=== PATIENT | male | born 1960 | race Caucasian/White ===

== ENCOUNTER 2017-09-12 16:06 | Inpatient (IN) | payer SELFPAY ==
[~2017-09-12] VITALS: Ht 177.8 cm; Wt 104.5 kg
[2017-09-12] MEDS ORDERED: ASPIRIN 81 MG CHEW TAB PO STA (16:18)
[2017-09-12] MEDS ORDERED: HEPARIN SODIUM - IV 10,000 UNITS/10 ML VIAL IV PUSH STA (16:18)
[2017-09-12] MEDS ORDERED: HEPARIN-NS/PF INJ 1,000 ML ONE (16:23)
[2017-09-12] MEDS ORDERED: STERILE WATER FOR INJECTION 10 ML VIAL ONE (16:28)
[2017-09-12] MEDS ORDERED: BIVALIRUDIN 250 MG VIAL ONE ×2 (16:28→17:25)
[2017-09-12] MEDS ORDERED: NITROGLYCERIN-D5W 50 MG/250 ML 250 ML IV PRN ×2 (16:30)
--- NOTE | 2017-09-12 16:42 | PD ---
HPI Chief Complaint: STEMI Alert Time Seen by Provider: 16:10 Travel History International Travel<30 days: No Contact w/Intl Traveler<30days: No Traveled to known affect area: No History of Present Illness HPI This patient is brought in as a STEMI alert. He started having central chest pain and pressure 30 minutes prior to arrival. Was not exertionally induced. He denies history of heart attack or heart blockage. He has hypertension and is not treating it. He is a smoker. Symptoms are moderately severe. No alleviating factors. No exacerbating factors. PFSH Past Medical History Medical History: Denies Significant Hx Past Surgical History Surgical History: No Previous Surgery Social History Alcohol Use: No Tobacco Use: No Substance Use: No Allergies-Medications (Allergen,Severity, Reaction): Coded Allergies: No Known Allergies (Unverified , 09/12/17) Review of Systems General / Constitutional: No: Fever Eyes: No: Visual changes HENT: No: Headaches Cardiovascular: Positive: Chest Pain or Discomfort Respiratory: No: Shortness of Breath Gastrointestinal: No: Abdominal Pain Genitourinary: No: Dysuria Musculoskeletal: No: Pain Skin: No Rash Neurologic: No: Weakness Psychiatric: No: Depression Endocrine: No: Polydipsia Hematologic/Lymphatic: No: Easy Bruising Physical Exam Narrative GENERAL: Well-nourished, well-developed patient with chest pain SKIN: Focused skin assessment reveals no rash and nodules. Skin is Warm and dry. HEAD: Atraumatic. Normocephalic. EYES: Pupils equal and round. No scleral icterus. No injection or drainage. ENT: No nasal bleeding or discharge. Mucous membranes pink and moist. NECK: Trachea midline. No JVD. CARDIOVASCULAR: Regular rate and rhythm. No murmur appreciated. RESPIRATORY: No accessory muscle use. Clear to auscultation. Breath sounds equal bilaterally. GASTROINTESTINAL: Abdomen soft, non-tender, nondistended. Hepatic and splenic margins not palpable. MUSCULOSKELETAL: No obvious deformities. No clubbing. No cyanosis. No edema. NEUROLOGICAL: Awake and alert. No obvious cranial nerve deficits. Motor grossly within normal limits. Normal speech. PSYCHIATRIC: Appropriate mood and affect; insight and judgment normal. Data Data Last Documented VS Vital Signs Date Time Temp Pulse Resp B/P (MAP) Pulse Ox O2 Delivery O2 Flow Rate FiO2 09/12/17 16:20 96 Nasal Cannula 2.00 09/12/17 16:18 80 98 Orders Orders Cardiac Catheterization (09/12/17 ) Troponin I (09/12/17 16:10) Ckmb (Isoenzyme) Profile (09/12/17 16:10) Complete Blood Count With Diff (09/12/17 16:10) I-Stat Profile (09/12/17 16:10) I-Stat Creatinine (09/12/17 16:10) Calcium (09/12/17 16:10) Magnesium (Mg) (09/12/17 16:10) Prothrombin Time / Inr (Pt) (09/12/17 16:10) Act Partial Throm Time (Ptt) (09/12/17 16:10) B-Type Natriuretic Peptide (09/12/17 16:10) Chest, Single Ap (09/12/17 16:10) Electrocardiogram (09/12/17 16:10) Oxygen Administration (09/12/17 16:10) Iv Access Insert/Monitor (09/12/17 16:10) Oximetry (09/12/17 16:10) Nitroglycerin-D5w 50 Mg/250 Ml (Nitrogly (09/12/17 16:30) Heparin Inj (Heparin Inj) (09/12/17 16:18) Aspirin Chew (Aspirin Chew) (09/12/17 16:18) Heparin-Ns/Pf Inj (Heparin-Ns/Pf Inj) (09/12/17 16:23) Nitroglycerin-D5w 50 Mg/250 Ml (Nitrogly (09/12/17 16:30) Bivalirudin Inj (Angiomax Inj) (09/12/17 16:28) Water Sterile For Injection (Sterile Dimas (09/12/17 16:28) Labs Laboratory Tests Test 09/12/17 16:10 MDM Medical Decision Making Medical Screen Exam Complete: Yes Emergency Medical Condition: Yes Medical Record Reviewed: Yes Differential Diagnosis Acute RI, ACS, pleurisy Narrative Course I have reviewed the patient's electronic medical record. This patient arrives critically ill as an acute inferior STEMI Both EKGs here and paramedics EKG confirmed large tombstones in inferior leads with reciprocal depressions in lateral leads 2 IVs placed I have ordered the STEMI alert protocol I gave him 2 baby aspirin to equal 4 total as 2 were given by paramedics I gave him a heparin bolus per protocol I started him on nitroglycerin drip I reviewed his i-STAT switch look normal Hemoglobin is normal Creatinine is 1.2 I discussed the case in detail with toll line repairer on-call Dr. Pastrana He agrees with above treatments and requests prompt transfer to the catheter lab for emergent catheterization All of the above reviewed with patient Initial blood pressure 140 systolic Critical Care Narrative Aggregate critical care time was 34 minutes. Time to perform other separately billable procedures was not included in the critical care time. My time did not include minutes spent treating any other patients simultaneously or on activities that did not directly contribute to the patient's treatment. The services I provided to this patient were to treat and/or prevent clinically significant deterioration that could result in: Cardiopulmonary arrest, myocardial damage, cardiac arrhythmia I provided critical care services requiring my management, as noted below: Chart data review, documentation time, medication orders and management, vital sign assessments/reviewing monitor data, ordering and reviewing lab tests, ordering and interpreting/reviewing x-rays and diagnostic studies, care of the patient and discussion of the patient with the admitting physicians. Diagnosis Primary Impression: Acute ST elevation myocardial infarction (STEMI) of inferior wall Admitting Information Admitting Physician Requests: it Oskar Zaldivar MD Sep 12, 2017 16:42
[2017-09-12 16:43] LABS: AUTOMATED NEUTROPHIL # 13.4 TH/MM3 (1.8-7.7); BASOPHIL # 0.1 TH/MM3 (0-0.2); BASOPHIL % 0.3 % (0.0-2.0); EOSINOPHIL # 0.1 TH/MM3 (0-0.4); EOSINOPHIL % 0.7 % (0.0-4.0); HEMATOCRIT 46.9 % (39.0-51.0); HEMOGLOBIN 15.7 GM/DL (13.0-17.0); LYMPH % 14.8 % (9.0-44.0); LYMPHOCYTE # 2.5 TH/MM3 (1.0-4.8); MEAN CELL VOLUME 83.4 FL (80.0-100.0); MEAN CORPUSCULAR HEMOGLOBIN 27.8 PG (27.0-34.0); MEAN CORPUSCULAR HGB CONC 33.4 % (32.0-36.0); MEAN PLATELET VOLUME 8.1 FL (7.0-11.0); MONO % 3.8 % (0.0-8.0); MONOCYTE # 0.6 TH/MM3 (0-0.9); NEUT % 80.4 % (16.0-70.0); PLATELET COUNT 253 TH/MM3 (150-450); RED BLOOD COUNT 5.62 MIL/MM3 (4.50-5.90); RED CELL DISTRIBUTION WIDTH 15.7 % (11.6-17.2); WHITE BLOOD COUNT 16.7 TH/MM3 (4.0-11.0)
[2017-09-12] MEDS ORDERED: MIDAZOLAM HCL 2 MG/2 ML VIAL ONE (16:43)
--- NOTE | 2017-09-12 16:45 | RADRPT ---
EXAM DATE/TIME: 09/12/2017 16:21 [facility] COMPARISON: CHEST SINGLE AP, September 12, 2017, 16:13. INDICATIONS : Chest pain. Stemi alert. MEDICAL HISTORY : None. SURGICAL HISTORY : None. ENCOUNTER: Initial ACUITY: 1 day PAIN SCORE: 7/10 LOCATION: Bilateral chest FINDINGS: Single AP view of the chest. The lungs are clear. Mild cardiac silhouette enlargement. No evidence of pleural effusion or pneumothorax. CONCLUSION: Mild cardiac silhouette enlargement. No other acute cardiopulmonary disease identi fied. Milan Sun MD on September 12, 2017 at 16:42 Board Certified Radiologist. This report was verified electronically.
[2017-09-12] MEDS ORDERED: PHENYLEPHRINE HCL 10 MG/ML VIAL ONE (16:49)
--- NOTE | 2017-09-12 16:51 | RADRPT ---
EXAM DATE/TIME: 09/12/2017 16:13 [facility] COMPARISON: No previous studies available for comparison. INDICATIONS : Chest pain- stemi alert. MEDICAL HISTORY : None. SURGICAL HISTORY : None. ENCOUNTER: Initial ACUITY: 1 day PAIN SCORE: 10/10 LOCATION: Bilateral chest FINDINGS: Single AP view of the chest. The lungs are clear. Mild cardiac silhouette enlargement. No evidence of pleural effusion or pneumothorax. CONCLUSION: Mild cardiac silhouette enlargement. No other acute cardiopulmonary disease ident ified. Milan Sun MD on September 12, 2017 at 16:48 Board Certified Radiologist. This report was verified electronically.
[2017-09-12 16:55] LABS: PROTHROMBIN TIME - PATIENT 10.4 SEC (9.8-11.6)
[2017-09-12 17:04] LABS: CALCIUM 9.1 MG/DL (8.5-10.1); MAGNESIUM 2.1 MG/DL (1.5-2.5)
[2017-09-12 17:06] LABS: TROPONIN I 0.27 NG/ML (0.02-0.05)
[2017-09-12] MEDS ORDERED: TICAGRELOR 90 MG TAB PO ONE ×2 (17:16→17:30)
[2017-09-12] MEDS ORDERED: MISC INFORMATION XX ONE (17:30)
[2017-09-12] MEDS: SODIUM CHLOR 0.9% 1000 ML INJ 1,000 ML IV SCH (17:30)
[2017-09-12] MEDS ORDERED: ATROPINE SULFATE 1 MG/ML VIAL IV PUSH PRN (17:30)
[2017-09-12] MEDS ORDERED: PILL SPLITTER OTHER PRN (17:45)
--- NOTE | 2017-09-12 18:02 | CATHPROC ---
T-Quad 22 HIS Report Study Information Study Number Admission Scheduled Start Study Start [id number] Sep 12 2017 4:06PM 09/12/2017 Sep 12 2017 4:22PM [facility] Service Cardiac Catheterization Admit Source Facility Department Emergency department [facility] - Java Xml Developer Physician and Clinical Staff Initial MD Noble, Mike Acid Changer Celio RN, Jasmyne Gtz,RT(R) (BS) Scrub Anay Damon,RT(R) Procedures Performed Procedure Location (Site) Vessel Name Angiogram LV LV Ventricle Coronary Angiograms LCA Left Coronary L Heart Cath PTCA RCA Dist Right Coronary Stent RCA Dist Right Coronary Wire insertion Fem Art (right) Femoral Art Equipment Time Bass Singer Description Size Mfg Part Number Used/Scraped COPILOT VALVE, BLEEDBACK [id number] 16:44 [employer] Used CONTROL *[id number] PERCLOSE, PRO GLIDE CLOSER 17:15 [employer] FR 6 [id number] *[id number] Used DEVICE TRANSDUCER, TRUWAVE [id number] 16:25 OLNG WERNER * Used W/STOCKCOCK *[id number] WIRE, CHOICE PT EX. SUPPORT [id number] 16:55 [employer] 180CM Used 182CM *[id number] INTRODUCER SET, 16:25 [employer] FR 5 [id number] *[id number] Used MICROPUNCTURE, STIFFENED [id number] *[id number] *[id number] PIGTAIL ANG. 145 INFINITI 534-652S CATHETER *[id number] 16:25 [employer] INDUSTRIES PACK, CCL CUSTOM * Used *[id number] 16:59 MED[employer] BALLOON, 2.5 X 12MM EUPHORA 12MM Used *[id number] 17:06 [employer]IC STENT, 2.75 18 INTEGRITY 2.75 18 Used *5409537 [id number] 17:01 [employer]vant [employer] MEDICAL 30 CHEMO INDEFLATOR Used *[id number] [id number] 16:25 [employer]zlong WIRE, 3MMJ .035 180CM 180CM Used *[id number] [id number] 16:25 NAMIC MANIFOLD, 4 PORT * Used *[id number] [id number] 17:10 NAMIC TUBING, HIGH PRESSURE 20" 20" Used *[id number] 16:25 [employer]COMED OMNIPAQUE, 350 MG, 150ML 150ML [id number] Used 17:15 [employer]ED OMNIPAQUE, 350 MG, 50ML 50ML [id number] Used [id number] 16:25 [employer]ANN MEDICAL BLANKET,WARM AIR CCL * Used *1992102 [id number] 16:29 TERUMO MEDICAL SHEATH, FR6 TERUMO (10CM) FR 6 Used *[id number] WIRE, RUNTHROUGH NS FLOPPY 16:44 [employer]UMO MEDICAL 180CM Used .014 180CM *[id number] PIG ANG 145 DXTERITY Scrap: device 17:10 MEDTRONIC FR 5 [id number] CATHETER failure Equipment Model, Serial, Lot Number and Expiration Data Description Model Number Serial Number Lot Number Expiration Date STENT, 2.75 18 INTEGRITY [id number] 11-13-2018 WIRE, CHOICE PT EX. SUPPORT [id number] 02-12-2019 182CM History: Current Medications Medication Dosage/Unit Route Frequency Last Date/Time Taken ASA HEPARIN History: Allergies Allergy Reaction No Known Allergies History: Risk Factors Family History of Hypertension Dyslipidemia Previous MS Previous Heart Failure Premature CAD No No No No No Prior Valve Prior PCI Prior CABG Surgery No No No Cerebrovascular Peripheral Artery Chronic Lung On Dialysis Diabetes Disease Disease Disease No No No No No History: Symptoms/Diagnosis Selection Items Chest pain History: Stress Tests Stress or Imaging Studies Performed No History: Other Current Smoker No Labs Hgb (g/dl) Hct (%) WBC (l/cumm) Platelets (thousands) 11.60-17.00 35.00-51.00 4.00-11.00 150.00-450.00 15.7 46.9 16.7 253 Glucose (mg/dl) BUN (mg/dl) Creatinine (mg/dl) BUN:Creatinine (1:x) 74.00-106.00 7.00-18.00 0.50-1.30 10.00-20.00 186 16 1.2 13.3 Na (meq/l) K (meq/l) Cl (meq/l) 136.00-145.00 3.50-5.10 98.00-107.00 141 3.9 103 Medication Medication Total Dose (Bolus/Oral) Medication Total Dosage/Unit 1% XYLOCAINE 20 mL ANGIOMAX BOLUS 16 mL BRILINTA 180 mg FENTANYL 50 mcg VERSED 1 mg Medications (Bolus/Oral) Medication Time Given Dosage/Unit Administered By Reason FENTANYL 09/12/2017 4:46:12 PM 50 mcg Tj Pickens RN 50 mcg FENTANYL given in lab by Tj Pickens RN in Left Antecubital via Peripheral IV. Ordered by Mike Steiner. 1% XYLOCAINE 09/12/2017 4:46:47 PM 20 mL Mike Noble 20 mL 1% XYLOCAINE given in lab by Mike Noble in Right Groin via Subcutaneous. VERSED 09/12/2017 4:47:00 PM 1 mg Tj Pickens RN 1 mg VERSED given in lab by Tj Pickens RN in Left Antecubital via Peripheral IV. Ordered by Mike Mcwilliams. ANGIOMAX BOLUS 09/12/2017 4:50:12 PM 16 mL Tj Pickens RN 16 mL ANGIOMAX BOLUS given in lab by Tj Pickens RN in Left Antecubital via Peripheral IV. Ordered b y Mike Noble. BRILINTA 09/12/2017 5:20:02 PM 180 mg Tj Pickens RN 180 mg BRILINTA given in lab by Tj Pickens RN via Oral. Ordered by Mike Noble. Medication (Drip) Medication Time Given Dosage/Unit Concentration/Unit Diluent (ml) Solutio n ANGIOMAX DRIP 09/12/2017 4:53:28 PM 1.748 mg/kg/hr 250 mg 50 NaCl .9 1.748 mg/kg/hr ANGIOMAX DRIP given in lab by Tj Pickens RN in Left Antecubital via Peripheral IV. P ump/Drip Flow = 37.4 ml/hr using NaCl .9 with a concentration of 250 mg in 50 ml. Ordered by Mike Noble. IV Solutions 09/12/2017 4:34:53 PM 50 mL (IV) NaCl .9 IV Solutions given in lab by Tj Pickens RN in Left Antecubital via Peripheral IV. Pump/Drip Flow us ing NaCl .9. NITROGLYCERIN DRIP 09/12/2017 4:42:28 PM 5 mcg/min 50 mg 250 D5W Patient arrived on 5 mcg/min NITROGLYCERIN DRIP in Left Hand via Peripheral IV. Pump/Drip Flow = 1.5 ml/hr using D5W with a concentration of 50 mg in 250 ml. Initial Case Assessment Cardiovascular HR Rhythm NIBP Chest Pain 89 STEMI 141/101 7 Edema Present Skin color Skin None Normal Warm Dry Circulatory - Right Pulses Dorsalis Pedis Femoral 2 2 Scale (0,1,2,3,4,d) Circulatory - Left Pulses Dorsalis Pedis Femoral 2 2 Scale (0,1,2,3,4,d) Neurological State Oriented to time-place- Alert Moves all extremities person Respiration - General Respiration Rate SpO2 (%) (B/min) 10 99 Final Case Assessment Cardiovascular HR NIBP Chest Pain 81 132/89 0 Edema Present Skin color Skin None Normal Warm Dry Circulatory - Right Pulses Dorsalis Pedis Femoral 2 2 Scale (0,1,2,3,4,d) Circulatory - Left Pulses Dorsalis Pedis Femoral 2 2 Scale (0,1,2,3,4,d) Neurological State Oriented to time-place- Alert Moves all extremities person Respiration - General Respiration Rate SpO2 (%) (B/min) 9 99 Chronological Log Time Study Chronological Log 16:34:33 Patient arrived via Bed. 16:34:33 Patient Name, D.O.B, / Armband Verified By R.N. 16:34:34 Consent signed by the physician and the patient and verified by the Java Xml Developer staff. 16:34:38 Pre-op and post- op instructions given; patient acknowledges understanding of instructions. 16:34:40 Verbal Stimulation=2 Physical Stimulation=2 Airway=2 Respiration=2 TOTAL=8. (0=absent, 1=li mited, 2=present) 16:34:46 Patient Warmer Placed on the Table. 16:34:48 Disposable Defibrillator Pads Placed On Patient. 16:34:49 Anthony Prominences Protected 16:34:52 A # 20 IV was noted in the Hand (left). Grade = 0 16:34:53 IV Solutions given in lab by Tj Pickens RN in Left Antecubital via Peripheral IV. Pump/Dr ip Flow using NaCl .9. 16:34:54 History and physical on the chart or being dictated. Assessment: Initial Case, HR=89 BPM, Rhythm=STEMI, DDKX=704/101 mmhg, Chest Pain=7, Edema=None, Color=Normal, Skin = Warm, Dry Right Pulses: Zeb Ped=2, Femoral=2 16:34:54 Left Pulses: Zeb Ped=2, Femoral=2 Neurological: State=Alert, Ox3, ROME Respiration: Resp=10 B/min, SpO2=99 % Vitals capture started with the following parameters, Patient=Adult, Interval=5 min, Initial Pr pbjhng=016 mmHg, 16:39:05 Deflation Rate=5 mmHg, Cuff placed on Left Arm 16:39:44 HR=89 bpm, LDOD=902/101 mmhg, SpO2=99.0 %, Resp=10 B/min, Pain=7, Ahsan=10, Manuel=2 16:40:28 A # 20 IV was noted in the Antecubital (left). Grade = 0 16:40:47 Bilateral groins prepped with 2% chlorhexidine, and draped after a 3 minute waiting time. 16:40:52 Reference ECG taken Patient arrived on 5 mcg/min NITROGLYCERIN DRIP in Left Hand via Peripheral IV. Pump/Drip Flow = 1.5 ml/hr using 16:42:28 D5W with a concentration of 50 mg in 250 ml. Vitals capture started with the following parameters, Patient=Adult, Interval=5 min, Initial Pr keddsi=889 mmHg, 16:43:27 Deflation Rate=5 mmHg, Cuff placed on Left Arm 16:44:06 HR=80 bpm, YVZJ=619/102 mmhg, PrQ8=538.0 %, Resp=10 B/min, Pain=7, Ahsan=10, Manuel=2 16:44:23 Contrast Scanned 16:44:23 Immediate Presedation assesment performed by physician. Time Out. Correct patient, correct procedure, correct physician, power injector not loaded with contrast with surgical 16:44:24 team present. Time Out Concurred by MD and individual staff in procedure. 16:44:38 Case Start 16:44:45 Verbal Stimulation=2 Physical Stimulation=2 Airway=2 Respiration=2 TOTAL=8. (0=absent, 1=li mited, 2=present) 16:45:01 Pressure channel 1 zeroed. 16:46:12 50 mcg FENTANYL given in lab by Tj Pickens RN in Left Antecubital via Peripheral IV. Orde red by Mike Noble. 16:46:47 20 mL 1% XYLOCAINE given in lab by Mike Noble in Right Groin via Subcutaneous. 16:47:00 1 mg VERSED given in lab by Tj Pickens RN in Left Antecubital via Peripheral IV. Ordered by Mike Noble. 16:47:30 Access site was Right Femoral Artery. A INTRODUCER SET, MICROPUNCTURE, STIFFENED FR 5 was advanced into the Fem Art (right) using the 16:47:35 Percutaneous technique. A SHEATH, FR6 TERUMO (10CM) FR 6 was exchanged in the Fem Art (right). This was necessary in or kyung to 16:47:43 accomodate a larger catheter. A JL 4.0 INFINITI CATHETER FR 6 was advanced over a wire. OMNIPAQUE, 350 MG, 150ML 150ML was us ed for 16:48:37 injections. 16:49:09 HR=79 bpm, OYAF=440/102 mmhg, YuA6=412.0 %, Resp=9 B/min, Pain=7, Ahsan=10, Manuel=2 Recorded Pressure: Ao, HR=82, Condition=Condition 1 16:49:37 (Aorta) Ao 135/90/112 16 mL ANGIOMAX BOLUS given in lab by Tj Pickens RN in Left Antecubital via Peripheral IV. Ord ered by Real, 16:50:12 Mike. 16:51:04 The LCA was injected and visualized at various angles. OMNIPAQUE, 350 MG, 150ML 150ML used . Recorded Pressure: LV, HR=94, Condition=Condition 1 16:51:41 (Left Ventricle) LV 148/15/29 Recorded Pressure: LV, Ao, HR=84, Condition=Condition 1 16:51:50 (Left Ventricle) LV 132/16/26, (Aorta) Ao 145/92/119 1.748 mg/kg/hr ANGIOMAX DRIP given in lab by Tj Pickens RN in Left Antecubital via Peripheral IV. Pump/Drip Flow = 16:53:28 37.4 ml/hr using NaCl .9 with a concentration of 250 mg in 50 ml. Ordered by Mike Noble. 16:53:37 A WIRE, RUNTHROUGH NS FLOPPY .014 180CM 180CM was inserted via Fem Art (right). 16:54:41 HR=99 bpm, ERRH=430/103 mmhg, MoN6=922.0 %, Resp=8 B/min, Pain=7, Ahsan=10, Manuel=2 16:56:07 Wire removed 16:56:08 A WIRE, CHOICE PT EX. SUPPORT 182CM 180CM was inserted via Fem Art (right). A BALLOON, 2.5 X 12MM EUPHORA 12MM was inserted over WIRE, CHOICE PT EX. SUPPORT 182CM 180CM vi a the 16:58:40 Fem Art (right). 16:59:09 HR=96 bpm, MVOK=970/97 mmhg, VzW3=396.0 %, Resp=8 B/min A BALLOON, 2.5 X 12MM EUPHORA 12MM over a WIRE, CHOICE PT EX. SUPPORT 182CM 180CM in the RCA Di st was 17:00:25 inflated using a 30 CHEMO INDEFLATOR at 10 chemo for 10 sec. A BALLOON, 2.5 X 12MM EUPHORA 12MM over a WIRE, CHOICE PT EX. SUPPORT 182CM 180CM in the RCA Di st was 17:01:16 inflated using a 30 CHEMO INDEFLATOR at 10 chemo for 12 sec. 17:01:26 Balloon Removed. 17:04:08 HR=88 bpm, ATVT=690/82 mmhg, AyY3=419.0 %, Resp=11 B/min An STENT, 2.75 18 INTEGRITY 2.75 18 Bare Metal Stent was inserted through a JR 4.0 GUIDE CATHET ER FR 6 over a 17:06:03 WIRE, CHOICE PT EX. SUPPORT 182CM 180CM. A STENT, 2.75 18 INTEGRITY 2.75 18 was deployed using a 30 CHEMO INDEFLATOR at 12 atmospheres for 13 seconds in 17:06:15 the RCA Dist. 17:07:21 Delivery device removed 17:08:53 Wire removed 17:08:55 Catheter was removed 17:09:05 HR=85 bpm, XRJX=300/82 mmhg, TmI1=085.0 %, Resp=13 B/min A PIGTAIL ANG. 145 INFINITI CATHETER FR 6 was advanced over a wire. OMNIPAQUE, 350 MG, 150ML 15 0ML was 17:11:10 used for injections. Recorded Pressure: LV, HR=85, Condition=Condition 1 17:12:18 (Left Ventricle) LV 111/13/25 17:14:00 The LV was injected at 10 cc/sec for a total of 30. OMNIPAQUE, 350 MG, 50ML 50ML used. 17:14:10 HR=84 bpm, CJXM=214/66 mmhg, SpO2=99.0 %, Resp=9 B/min Recorded Pressure: LV, Ao, HR=82, Condition=Condition 1 17:14:28 (Left Ventricle) LV 116/12/23, (Aorta) Ao 116/79/97 17:15:03 Catheter was removed 17:15:45 An injection in the Fem Art (right) was made through the SHEATH, FR6 TERUMO (10CM) FR 6. 17:16:36 PERCLOSE, PRO GLIDE CLOSER DEVICE FR 6 placement in the Fem Art (right) 17:18:11 Case End 17:19:07 HR=80 bpm, RTZZ=135/83 mmhg, SpO2=98.0 %, Resp=7 B/min 17:20:02 180 mg BRILINTA given in lab by Tj Pickens RN via Oral. Ordered by Mike Noble. 17:24:08 HR=89 bpm, QXDF=590/89 mmhg, SpO2=99.0 %, Resp=9 B/min 17:25:07 Sterile dressing applied to site 17:25:08 No case complications noted. 17:25:14 Cine recording checked. 17:25:15 Bedside Report will be given. 17:25:16 Implantable Device card placed in patient's chart. 17:25:19 Contrast Scanned 17:25:26 A Left Heart Cath was performed. Assessment: Final Case, HR=81 BPM, BCUS=288/89 mmhg, Chest Pain=0, Edema=None, Color=Normal, Sk in = Warm, Dry Right Pulses: Zeb Ped=2, Femoral=2 17:27:31 Left Pulses: Zeb Ped=2, Femoral=2 Neurological: State=Alert, Ox3, ROME Respiration: Resp=9 B/min, SpO2=99 % 17:29:10 HR=86 bpm, RHZE=600/81 mmhg, GuJ9=843.0 %, Resp=10 B/min 17:34:11 HR=86 bpm, VRGE=579/110 mmhg, GbK0=149.0 %, Resp=14 B/min 17:39:12 DE=131 bpm, IWXH=412/94 mmhg, SpO2=99.0 %, Resp=15 B/min, Pain=7, Ahsan=10, Manuel=2 17:44:11 HR=88 bpm, YSYQ=306/89 mmhg, SpO2=95.0 %, Resp=13 B/min, Pain=7, Ahsan=10, Manuel=2 17:49:10 HR=87 bpm, WBTX=861/91 mmhg, SpO2=97.0 %, Resp=14 B/min, Pain=7, Ahsan=10, Manuel=2 17:54:13 HR=91 bpm, XMYI=619/85 mmhg, SpO2=96.0 %, Resp=12 B/min, Pain=7, Ahsan=10, Manuel=2 17:59:41 HR=93 bpm, RTIM=310/94 mmhg, SpO2=95.0 %, Resp=15 B/min, Pain=7, Ahsan=10, Manuel=2 End Study - Contrast Media Used In Study Contrast Total Opened (mL) Total Used (mL) Total Wasted (mL) Omnipaque 90 90 0 End Study - Maximum Contrast Load Max Contrast Load (mL) 445.8 End Study - Radiation Exposure Fluoro Time (minutes) 8.5 End Study - Patient Disposition Complications Transferred To Interventional Outcome No Critical Care Bed successful
[2017-09-12 19:00] VITALS: PULSE 92
[2017-09-12] MEDS ORDERED: BIVALIRUDIN INJ 250 MG in SODIUM CHLORIDE 0.9% INJ 50 ML IV SCH (19:30)
[2017-09-12] MEDS: METOPROLOL TARTRATE 25 MG TAB PO SCH (20:49)
[2017-09-12] MEDS: ATORVASTATIN 10 MG TAB PO SCH (20:49)
--- NOTE | 2017-09-12 21:11 | MB ---
cc: ALEX RAYGOZA DATE OF CONSULTATION 09/12/17 [address]-segment elevation MO. HISTORY OF PRESENT ILLNESS 57-year-old male with no past medical history who presented to the emergency department with acute onset of chest pain. The emergency department EKG revealed ST-segment elevation on inferior leads with reciprocal changes in the anterior leads for which a stimulator was activated. The patient complains of left-sided chest pain with radiation to the arm. No associated shortness of breath or PND, palpitations or syncope. REVIEW OF SYSTEMS Negative except for what is mentioned in the HPI. PAST MEDICAL HISTORY None PAST SURGICAL HISTORY None FAMILY HISTORY No premature heart disease. SOCIAL HISTORY No illicit drug use. No alcohol abuse. Apparently a smoker. PHYSICAL EXAMINATION VITAL SIGNS: Temperature 97, heart rate 100, blood pressure 140/80, O2 sat 100 % on 2 liters nasal cannula. GENERAL: He is awake, alert, oriented times three complaining of chest pain. NECK: No JVD, no carotid bruits. HEART: Regular rate and rhythm. Tachycardic. No murmurs, rubs or gallops. LUNGS: Poor inspiratory effort, no wheezes, no rhonchi. ABDOMEN: Obese. Positive bowel sounds, soft, nontender, nondistended. EXTREMITIES: No cyanosis or edema. Pulses throughout. LABORATORY DATA Sodium 141, potassium 3.9, chloride 103, BUN 16. Hemoglobin 16, hematocrit 40. CARDIOLOGY STUDIES EKG sinus rhythm with significant ST elevation in inferior leads suggestive of acute myocardial injury. ASSESSMENT/PLAN 57-year-old male who presented with STEMI alert. He is complaining of chest pain. Recommendation would be to take him emergently to the cardiac track repair laborer for primary PCI per ACC/AHA guidelines, risks, benefits and alternatives of left heart cath plus/minus PCI included but not limited to neurovascular trauma , infection, bleeding, acute kidney injury, stroke, emergent bypass surgery and have been explained to the patient. The patient understands the risks and is willing to proceed. Plan to keep n.p.o. for emergent primary PCI. Alex Raygoza MD INSURANCE FOLLOW UP REPRESENTATIVE/SA /4:37 PM /8:31 PM [facility]
[2017-09-12 23:00] VITALS: PULSE 83
[2017-09-13] VITALS (18 sets, daily range): BP systolic 118–135; BP diastolic 79–83; PULSE 66–83; RESP 16–21; TEMP 97.7–98.3; O2SAT 96–97
[2017-09-13 04:10] LABS: AUTOMATED NEUTROPHIL # 12.8 TH/MM3 (1.8-7.7); BASOPHIL # 0.1 TH/MM3 (0-0.2); BASOPHIL % 0.6 % (0.0-2.0); EOSINOPHIL % 0.2 % (0.0-4.0); HEMATOCRIT 40.4 % (39.0-51.0); HEMOGLOBIN 13.4 GM/DL (13.0-17.0); LYMPH % 9.8 % (9.0-44.0); LYMPHOCYTE # 1.5 TH/MM3 (1.0-4.8); MEAN CELL VOLUME 82.1 FL (80.0-100.0); MEAN CORPUSCULAR HEMOGLOBIN 27.2 PG (27.0-34.0); MEAN CORPUSCULAR HGB CONC 33.1 % (32.0-36.0); MEAN PLATELET VOLUME 8.1 FL (7.0-11.0); MONO % 4.1 % (0.0-8.0); MONOCYTE # 0.6 TH/MM3 (0-0.9); NEUT % 85.3 % (16.0-70.0); PLATELET COUNT 194 TH/MM3 (150-450); RED BLOOD COUNT 4.92 MIL/MM3 (4.50-5.90); RED CELL DISTRIBUTION WIDTH 15.3 % (11.6-17.2)
[2017-09-13 04:38] LABS: BICARBONATE 25.5 MEQ/L (21.0-32.0); CALCIUM 8.2 MG/DL (8.5-10.1); CREATININE 0.96 MG/DL (0.60-1.30)
[2017-09-13] MEDS: SODIUM CHLOR 0.9% 1000 ML INJ 1,000 ML IV SCH (04:56)
--- NOTE | 2017-09-13 06:31 | MA ---
cc: JEREMIASALEX Tan DATE September 12, 2017 DATE OF 1960 PROCEDURE PERFORMED 1. Left heart catheterization. 2. Selective right and left coronary angiography. 3. Left ventriculogram. 4. Successful PCI to the distal right coronary artery. INDICATION Inferior ST-segment elevation MN. APPROACH Right transfemoral. PROCEDURE DESCRIPTION Consent was signed. The patient was admitted emergent to the cardiac slab inspector. The right groin was prepped and draped in sterile fashion. Using 1% lidocaine for local anesthesia and a micropuncture kit, a 6-Micronesian sheath was inserted in the right common femoral artery. Right common femoral artery angiography was performed to confirm position of the sheath, then selective left coronary angiography was performed with a JL-4 catheter and selective right coronary artery angiography was performed with a JR-4 guide. We identified the culprit lesion in the distal right coronary artery. Angiomax was started for anticoagulation. The vessel was wired with a Run-Through wire that was anchored distally into the PDA. This was followed by dilation of the culprit lesion with a 2.5/12 balloon, followed by insertion of the a 2.75/18 bare metal stent inflated to high atmospheres. Final angiographic views revealed good stent apposition and expansion with PIA-[address] patient's [address]-elevation resolved after the procedure. He was started on Brilinta and aspirin and Angiomax drip will continue for the next 4 hours. Total blood loss less than 10 cc. Total contrast 90 cc. The right groin access site was closed with a Perclose device. RESULTS LEFT VENTRICLE The left ventricular pressure was 116/12 with an LVEDP of 23. The aortic pressure was 116/79 with a mean of 97. There was no gradient upon pullback from the left ventricle to the aorta. Left ventricle revealed a symmetrically lorene ventricle with estimated ejection fraction of 50%. ANGIOGRAPHIC RESULTS 1. RIGHT CORONARY ARTERY: The right coronary artery is a dominant vessel giving off the PDA. This vessel is tourtous and aneurysmatic and it has 100% thrombotic occlusion before the PDA. 2. LEFT MAIN: The left main is giving off the LAD, ramus and the left circumflex artery. The left main has a significant 70% lesion in the distal segment. 3. LAD: The LAD is a transapical vessel is also diffusely diseased. It has a proximal 40% lesion and a mid 40% lesion. 4. LEFT CIRCUMFLEX ARTERY: The left circumflex artery is patent. It is giving off one OM branch and has no significant obstructive coronary artery disease. 5. RAMUS INTERMEDIUS: The ramus intermedius is small, patent. CONCLUSIONS The patient presented with a STEMI. He had acute thrombotic occlusion of the distal right coronary artery which was successfully stented with a bare metal stent. The patient has significant left main disease. Before the final stent placement, he was consulted to CT Surgery, Dr. Peralta, who came here to the slab inspector for discussion of the case. He agreed to put in the bare metal stent and to reevaluate in the following weeks for bypass surgery given his significant left main disease. In the meantime he will go to [facility] for post-cath care. We will continue aspirin and Brilinta and the Angiomax to continue for the next 4 hours. He will need aggressive medical management for secondary prevention of CAD with beta-blockers, statins and long-acting nitrates. Smoking cessation is strongly advised. MD CLARENCE Yañez/YEN /5:24 PM /6:05 AM WAYNE
[2017-09-13] MEDS ORDERED: IOHEXOL 350 MG/ML 100 ML BTL (for Cath Lab) OTHER ONE (07:59)
--- NOTE | 2017-09-13 08:54 | PD.CARD.PN ---
Subjective Subjective Remarks no CV complaints no overnight events Objective Medications Current Medications Medications (Trade) Dose Ordered Sig/Radha Route Start Time Stop Time Status Last Admin Nitroglycerin/ Dextrose 250 ml @ 3 mls/hr TITRATE PRN IV 09/12/17 16:30 09/12/17 19:00 (Aspirin Chew) 81 mg DAILY PO 09/13/17 09:00 (Brilinta) 90 mg BID PO 09/13/17 09:00 (Atropine Inj) 0.5 mg UNSCH PRN IV PUSH 09/12/17 17:30 (Lopressor) 12.5 mg BID PO 09/12/17 21:00 09/12/17 20:49 (Prinivil) 5 mg DAILY PO 09/13/17 09:00 (Lipitor) 10 mg HS PO 09/12/17 21:00 09/12/17 20:49 (Pill Splitter) 1 ea UNSCH PRN OTHER 09/12/17 17:45 Vital Signs / I&O Vital Signs Date Time Temp Pulse Resp B/P (MAP) Pulse Ox O2 Delivery O2 Flow Rate FiO2 09/13/17 07:00 77 09/13/17 03:00 81 09/13/17 01:00 79 164/96 09/13/17 00:00 86 160/100 09/12/17 23:00 83 09/12/17 23:00 79 165/101 09/12/17 19:00 92 09/12/17 19:00 90 161/107 09/12/17 16:20 96 Nasal Cannula 2.00 09/12/17 16:18 80 98 98 Nasal Cannula 2.00 I/O 09/12/17 09/12/17 09/12/17 09/13/17 09/13/17 09/13/17 07:00 15:00 23:00 07:00 15:00 23:00 Intake Total 1240 ml Output Total 400 ml Balance 840 ml Intake Oral 240 ml IV Total 1000 ml Output Urine Total 400 ml # Bowel Movements 0 Physical Exam GENERAL: Well-nourished, well-developed patient. SKIN: Warm and dry. HEAD: Normocephalic. EYES: No scleral icterus. No injection or drainage. NECK: Supple, trachea midline. No JVD or lymphadenopathy. CARDIOVASCULAR: Regular rate and rhythm without murmurs, gallops, or rubs. RESPIRATORY: Breath sounds equal bilaterally. No accessory muscle use. GASTROINTESTINAL: Abdomen soft, non-tender, nondistended. EXTREMITIES: No cyanosis, or edema. NEUROLOGICAL: Awake, alert, and oriented x 3. Non-focal. Laboratory Laboratory Tests Test 09/12/17 16:10 09/13/17 03:45 White Blood Count 16.7 TH/MM3 15.0 TH/MM3 Red Blood Count 5.62 MIL/MM3 4.92 MIL/MM3 Hemoglobin 15.7 GM/DL 13.4 GM/DL Bedside Hemoglobin 16.3 G/DL Hematocrit 46.9 % 40.4 % Bedside Hematocrit 48.0 % Mean Corpuscular Volume 83.4 FL 82.1 FL Mean Corpuscular Hemoglobin 27.8 PG 27.2 PG Mean Corpuscular Hemoglobin Concent 33.4 % 33.1 % Red Cell Distribution Width 15.7 % 15.3 % Platelet Count 253 TH/MM3 194 TH/MM3 Mean Platelet Volume 8.1 FL 8.1 FL Neutrophils (%) (Auto) 80.4 % 85.3 % Lymphocytes (%) (Auto) 14.8 % 9.8 % Monocytes (%) (Auto) 3.8 % 4.1 % Eosinophils (%) (Auto) 0.7 % 0.2 % Basophils (%) (Auto) 0.3 % 0.6 % Neutrophils # (Auto) 13.4 TH/MM3 12.8 TH/MM3 Lymphocytes # (Auto) 2.5 TH/MM3 1.5 TH/MM3 Monocytes # (Auto) 0.6 TH/MM3 0.6 TH/MM3 Eosinophils # (Auto) 0.1 TH/MM3 0.0 TH/MM3 Basophils # (Auto) 0.1 TH/MM3 0.1 TH/MM3 CBC Comment DIFF FINAL DIFF FINAL Differential Comment Prothrombin Time 10.4 SEC Prothromb Time International Ratio 1.0 RATIO Activated Partial Thromboplast Time 23.3 SEC Bedside Sodium 141 MMOL/L Bedside Potassium 3.9 MMOL/L Bedside Chloride 103 MMOL/L Bedside Blood Urea Nitrogen 16 MG/DL Bedside Creatinine 1.2 MG/DL Bedside Glucose 186 MG/DL Calcium Level 9.1 MG/DL 8.2 MG/DL Magnesium Level 2.1 MG/DL Total Creatine Kinase 97 U/L Troponin I 0.27 NG/ML B-Type Natriuretic Peptide 92 PG/ML Blood Urea Nitrogen 15 MG/DL Creatinine 0.96 MG/DL Random Glucose 119 MG/DL Sodium Level 140 MEQ/L Potassium Level 3.7 MEQ/L Chloride Level 109 MEQ/L Carbon Dioxide Level 25.5 MEQ/L Anion Gap 6 MEQ/L Estimat Glomerular Filtration Rate 80 ML/MIN Imaging Last 24 hours Impressions Chest X-Ray 09/12/17 1610 Signed Impressions: Service Date/Time: August 16:21 - CONCLUSION: Mild cardiac silhouette enlargement. No other acute cardiopulmonary disease identified. Milan Sun MD Assessment and Plan Problem List: (1) Acute ST elevation myocardial infarction (STEMI) of inferior wall ICD Codes: I21.19 - ST elevation (STEMI) myocardial infarction involving other coronary artery of inferior wall Status: Acute Plan: S/P PCI/BMS to distal RCA in the setting of STEMI. Complicated anatomy. No overnight events No CV complaints Recommendations: DAPT with ASA and Brilinta BB, ACEi, statins Echo CT consult Hospitalist consult d/c Mike Vital MD Sep 13, 2017 08:54
[2017-09-13] MEDS: ASPIRIN 81 MG CHEW TAB PO SCH (09:06)
[2017-09-13] MEDS: TICAGRELOR 90 MG TAB PO SCH ×2 (09:06→21:03)
[2017-09-13] MEDS: LISINOPRIL 5 MG TAB PO SCH (09:06)
[2017-09-13] MEDS: METOPROLOL TARTRATE 25 MG TAB PO SCH ×2 (09:06→21:03)
--- NOTE | 2017-09-13 10:05 | EKG ---
Date Performed: 09/12/2017 Time Performed: 16:20:19 PTAGE: 57 years EKG: Sinus rhythm WITH FREQUENT SUPRAVENTRICULAR PREMATURE COMPLEXES INFERIOR AND LATERAL MYOCARDIAL INFARCTION, ACUTE ACUTE TN NO PREVIOUS TRACING DOCTOR: Jignesh Novak Interpretating Date/Time 09/13/2017 10:04:42
--- NOTE | 2017-09-13 13:09 | MB ---
cc: PATRICIO ARANDA M.D. 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 Apparently lives here locally and was at the job when he developed significant midsternal chest pain. He has had some shortness of breath and some feeling like just sweatiness and indigestion for a couple of days prior. He told his boss and his boss called he presented with an acute ST-segment NH, inferior leads with reciprocal changes in the anterior leads. The patient was immediately taken to laborer drying department by Dr. Pastrana where he was found to have ejection fraction of 50% of the right coronary was dominant giving up the PDA was torturous and aneurysmatic with a 100% thrombotic occlusion before the PDA. The left main was giving off the ramus the LAD. The ramus and left circ. Left main 70% lesion in the distal segment. The LAD had a 40% lesion in the midportion. The left circ was the patent. The ramus was small and also patient states the ramus was small and also patent. The patient underwent successful stenting with a bare metal stent he still has significant left main disease, Dr. Mckee, with a day in the laborer drying department to evaluate the patient at that time and plan at this time is to continue aspirin Brilinta and be evaluated by Dr. Aranda in 4 weeks in our office. PAST MEDICAL HISTORY: The patient's past medical history significant for hepatitis C that he developed 15 years ago with a was treated medically treated with medications since been in remission. hypertension. PAST SURGICAL HISTORY: He has had no surgical intervention. ALLERGIES He has no known allergies. MEDICATIONS: He had takes no medications. FAMILY HISTORY Mother alive with history of hypertension. Father at 62 with a brain tumor. SOCIAL HISTORY the patient , has four children three of his own one-step child has been smoking one pack for 4 years. Rare alcohol. 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 REVIEW OF SYSTEMS IN GENERAL: No night sweats, fever, heat and cold intolerance. SKIN: No psoriasis, itching or hives. HEAD, EYES, EARS, NOSE, AND THROAT: No blurred vision, hearing loss. LUNGS: Respiratory, positive for recent shortness of breath. No cough. CARDIOVASCULAR SYSTEM: Cardiovascular as above in the history of present illness. GASTROINTESTINAL: No diarrhea, vomiting. GENITOURINARY: No burning frequency, urgency CENTRAL NERVOUS SYSTEM: No history of TIA, CVA, seizure disorder. ENDOCRINE: Endocrinology no history of diabetes and/or hypothyroidism. PHYSICAL EXAMINATION: VITAL SIGNS: On exam blood pressure 130/70, heart rate 70, temperature max 97.7, O2 sat 96 on room air. IN GENERAL: Patient is awake, alert in no acute distress head is normocephalic, atraumatic. HEAD, EYES, EARS, NOSE, AND THROAT: Pupils equal and reactive. Oral mucosa pink, moist. NECK: supple. No JVD. HEART: Heart sounds S1-S2 regular rate and rhythm. No audible rubs, murmurs, gallops. LUNGS: Lungs: Clear to auscultation. No wheezes, rales or rhonchi. ABDOMEN: Soft, nontender. No masses or organomegaly. EXTREMITIES: Reveal no cyanosis, clubbing or edema. LABORATORY FINDINGS: Lab work shows hemoglobin 13, hematocrit of 40 white cell count 15, platelet count 194, sodium 140, potassium 3.7, BUN of 15, creatinine 0.96 random glucose 119, troponin was 0.27, BNP 92, INR was 1.0. Chest x-ray was unremarkable. EKG as above. IMPRESSION This is a 57-year-old male with acute inferior wall ST-segment NH status post bare metal stent to the RCA currently now on Aspirin, Brilinta, XIOMY inhibitor, Lopressor, Lipitor. The patient has a he has been pain free since his catheterization at this time. The patient has an appointment with Dr. June, in 4 weeks for evaluation for bypass grafting to the LAD at the end of medication. Thank you. Dictated by ROSALEE Julien Raheel Daley /10:33 AM /8:17 AM
--- NOTE | 2017-09-13 15:25 | PD.CONS ---
HPI Service [facility] Consult Requested By Dr. Pastrana Reason for Consult Medical management Primary Care Physician Unknown Diagnoses: History of Present Illness This is a 57-year-old male with a history of hypertension who presented with chest pain that started yesterday. Patient describes chest pain as a burning sensation. He stated that he thought he was having acid reflux but then he got diaphoretic and has shortness of breathing. Patient stated that he told his boss so his boss called 911 where he was brought to the emergency department. Patient was found to have inferior STEMI so was immediately brought back to the [facility] where patient had PCI distal RCA. When patient was seen by me he denies any chest pain, shortness of breathing, palpitation, lightheadedness dizziness. He stated he was doing well and was anxious to go home. Patient has no complaints. He stated that he was smoking 1 pack per day for about 40 years. Patient stated that he will no longer smoke any tobacco. Patient's at the bedside during the interview. All other review system reviewed and negative. Past Family Social History Allergies: Coded Allergies: No Known Allergies (Unverified , 09/12/17) Past Medical History Hypertension Past Surgical History Denies any past surgical history Reported Medications No home medication. Active Ordered Medications Current Medications Nitroglycerin/ Dextrose 250 ml TITRATE PRN IV for angina or ST elevation; Start 09/12/17 at 16:30; Stop 09/12/17 at 16:30; Status DC Heparin Sodium (Porcine) (Heparin Inj) 6,000 units NOW STAT IV PUSH Last administered on 09/12/17at 16:26; Start 09/12/17 at 16:18; Stop 09/12/17 at 16:21 ; Status DC Aspirin (Aspirin Chew) 162 mg NOW STAT PO Last administered on 09/12/17at 16:26 ; Start 09/12/17 at 16:18; Stop 09/12/17 at 16:21; Status DC Heparin Sodium/ Sodium Chloride 1,000 ml @ As Directed STK-MED ONCE .ROUTE Last administered on 09/12/17at 16:23; Start 09/12/17 at 16:23; Stop 09/12/17 at 16:24; Status DC Nitroglycerin/ Dextrose 250 ml @ 3 mls/hr TITRATE PRN IV for angina or ST elevation Last administered on 09/12/17at 19:00; Start 09/12/17 at 16:30 Bivalirudin (Angiomax Inj) 250 mg STK-MED ONCE .ROUTE Last administered on 09/12at 16:50; Start 09/12/17 at 16:28; Stop 09/12/17 at 16:29; Status DC Sterile Water (Sterile Water For Injection) 10 ml STK-MED ONCE .ROUTE ; Start at 16:28; Stop 09/12/17 at 16:29; Status DC Midazolam HCl (Versed Inj) 2 mg STK-MED ONCE .ROUTE Last administered on at 16:47; Start 09/12/17 at 16:43; Stop 09/12/17 at 16:44; Status DC Fentanyl Citrate (fentaNYL INJ) 100 mcg STK-MED ONCE .ROUTE Last administered on 09/12/17at 16:46; Start 09/12/17 at 16:43; Stop 09/12/17 at 16:44; Status DC Phenylephrine HCl (Neosynephrine Inj) 10 mg STK-MED ONCE .ROUTE ; Start at 16:49; Stop 09/12/17 at 16:50; Status DC Ticagrelor (Brilinta) 180 mg STK-MED ONCE PO Last administered on 09/12/17at 17: 20; Start 09/12/17 at 17:16; Stop 09/12/17 at 17:17; Status DC Bivalirudin (Angiomax Inj) 250 mg STK-MED ONCE .ROUTE Last administered on 09/12at 16:53; Start 09/12/17 at 17:25; Stop 09/12/17 at 17:26; Status DC Sodium Chloride 1,000 ml @ 100 mls/hr Q10H IV Last administered on 09/12/17at 17:30; Start 09/12/17 at 17:30; Stop 09/12/17 at 21:29; Status DC Aspirin (Aspirin Chew) 81 mg DAILY PO Last administered on 09/13/17at 09:06; Start 09/13/17 at 09:00 Ticagrelor (Brilinta) 180 mg NOW ONCE PO ; Start 09/12/17 at 17:30; Stop at 17:36; Status DC Ticagrelor (Brilinta) 90 mg BID PO Last administered on 09/13/17at 09:06; Start 09/13/17 at 09:00 Miscellaneous Information 1 ONCE ONCE XX ; Start 09/12/17 at 17:30; Stop at 17:38; Status DC Atropine Sulfate (Atropine Inj) 0.5 mg UNSCH PRN IV PUSH VAGAL REPONSE; Start 09/12/17 at 17:30 Metoprolol Tartrate (Lopressor) 12.5 mg BID PO Last administered on 09/13/17at 09:06; Start 09/12/17 at 21:00 Lisinopril (Prinivil) 5 mg DAILY PO Last administered on 09/13/17at 09:06; Start 09/13/17 at 09:00 Atorvastatin Calcium (Lipitor) 10 mg HS PO Last administered on 09/12/17at 20:49 ; Start 09/12/17 at 21:00 Miscellaneous (Pill Splitter) 1 ea UNSCH PRN OTHER SEE LABEL COMMENTS; Start at 17:45 Bivalirudin 250 mg/Sodium Chloride 50 ml @ 37.5 mls/hr TITRATE IV ; Start 09/12 at 19:30; Stop 09/12/17 at 20:53; Status DC Iohexol (OMNIPAQUE 350 INJ ([facility])) 100 ml STK-MED ONCE OTHER ; Start at 07:59; Stop 09/13/17 at 08:00; Status DC Family History Mother had history of hypertension. Father had a brain tumor. Social History Smoke one pack per day of tobacco for the past 40 years. Minimal alcohol use. Denied illicit drug use. Physical Exam Vital Signs Vital Signs Date Time Temp Pulse Resp B/P (MAP) Pulse Ox O2 Delivery O2 Flow Rate FiO2 09/13/17 14:00 78 09/13/17 13:00 74 09/13/17 12:10 75 09/13/17 11:08 98.2 76 17 118/83 (95) 97 09/13/17 11:00 75 09/13/17 09:31 97.7 77 21 127/79 (95) 96 09/13/17 07:00 77 09/13/17 03:00 81 09/13/17 01:00 79 164/96 09/13/17 00:00 86 160/100 09/12/17 23:00 83 09/12/17 23:00 79 165/101 09/12/17 19:00 92 09/12/17 19:00 90 161/107 09/12/17 16:20 96 Nasal Cannula 2.00 09/12/17 16:18 80 98 98 Nasal Cannula 2.00 Physical Exam GENERAL: This is a well-nourished, well-developed patient, in no apparent distress. SKIN: No rashes, ecchymoses or lesions. Cool and dry. HEAD: Atraumatic. Normocephalic. No temporal or scalp tenderness. EYES: Pupils equal round and reactive. Extraocular motions intact. No scleral icterus. No injection or drainage. ENT: Nose without bleeding, purulent drainage or septal hematoma. Throat without erythema, tonsillar hypertrophy or exudate. Uvula midline. Airway patent. NECK: Trachea midline. No JVD or lymphadenopathy. Supple, nontender, no meningeal signs. CARDIOVASCULAR: Regular rate and rhythm without murmurs, gallops, or rubs. RESPIRATORY: Clear to auscultation. Breath sounds equal bilaterally. No wheezes , rales, or rhonchi. GASTROINTESTINAL: Abdomen soft, non-tender, nondistended. No hepato-splenomegaly , or palpable masses. No guarding. MUSCULOSKELETAL: Extremities without clubbing, cyanosis, or edema. No joint tenderness, effusion, or edema noted. No calf tenderness. Negative Homans sign bilaterally. NEUROLOGICAL: Awake and alert. Cranial nerves II through XII intact. Motor and sensory grossly within normal limits. Five out of 5 muscle strength in all muscle groups. Normal speech. Laboratory Laboratory Tests Test 09/12/17 16:10 09/13/17 03:45 White Blood Count 16.7 15.0 Red Blood Count 5.62 4.92 Hemoglobin 15.7 13.4 Bedside Hemoglobin 16.3 Hematocrit 46.9 40.4 Bedside Hematocrit 48.0 Mean Corpuscular Volume 83.4 82.1 Mean Corpuscular Hemoglobin 27.8 27.2 Mean Corpuscular Hemoglobin Concent 33.4 33.1 Red Cell Distribution Width 15.7 15.3 Platelet Count 253 194 Mean Platelet Volume 8.1 8.1 Neutrophils (%) (Auto) 80.4 85.3 Lymphocytes (%) (Auto) 14.8 9.8 Monocytes (%) (Auto) 3.8 4.1 Eosinophils (%) (Auto) 0.7 0.2 Basophils (%) (Auto) 0.3 0.6 Neutrophils # (Auto) 13.4 12.8 Lymphocytes # (Auto) 2.5 1.5 Monocytes # (Auto) 0.6 0.6 Eosinophils # (Auto) 0.1 0.0 Basophils # (Auto) 0.1 0.1 CBC Comment DIFF FINAL DIFF FINAL Differential Comment Prothrombin Time 10.4 Prothromb Time International Ratio 1.0 Activated Partial Thromboplast Time 23.3 Bedside Sodium 141 Bedside Potassium 3.9 Bedside Chloride 103 Bedside Blood Urea Nitrogen 16 Bedside Creatinine 1.2 Bedside Glucose 186 Calcium Level 9.1 8.2 Magnesium Level 2.1 Total Creatine Kinase 97 Troponin I 0.27 B-Type Natriuretic Peptide 92 Blood Urea Nitrogen 15 Creatinine 0.96 Random Glucose 119 Sodium Level 140 Potassium Level 3.7 Chloride Level 109 Carbon Dioxide Level 25.5 Anion Gap 6 Estimat Glomerular Filtration Rate 80 Result Diagram: 09/13/17 0345 09/13/17 0345 Imaging Last Impressions Chest X-Ray 09/12/17 1610 Signed Impressions: Service Date/Time: August 16:21 - CONCLUSION: Mild cardiac silhouette enlargement. No other acute cardiopulmonary disease identified. Milan Sun MD Assessment and Plan Assessment and Plan This is a 57-year-old male history of hypertension and tobacco dependence for 40 years presented with chest pain STEMI -Status post PCI of right distal RCA. -Patient currently chest pain-free. Being managed by Dr. Pastrana waist pleater. Continue to monitor over telemetry. -Continue with Brilinta, aspirin, metoprolol, statin, and lisinopril. -Per CT surgery patient will follow up in 4 weeks to determine if he needs a cardiac bypass. Hypertension -Treatment as above. Tobacco dependence -Smoking cessation. Education given. Patient stated that he would no longer smoke. He stated that he did not need any assistance. Discussed Condition With patient and his Sienna Ojeda MD Sep 13, 2017 15:25
--- NOTE | 2017-09-13 19:13 | ECHRPT ---
Indication: CORONARY ATHEROSCLEROSIS CONCLUSIONS Technically difficult study. The left ventricular systolic function is normal with an estimated ejection fraction in the range of 55-60%. Trace mitral valve regurgitation. There is trace tricuspid valve regurgitation. BP: / HR: Rhythm: Sinus MEASUREMENTS (Male / Female) Normal Values Technical Quality:Technically difficult study 2D ECHO LVOT Diameter 1.9 cm LV Ejection Fraction MOD 4C 64.9 % LV Ejection Fraction 4C AL 65.3 % M-MODE Aortic Root Diameter MM 3.4 cm AV Cusp Separation MM 1.3 cm DOPPLER AV Peak Velocity 158.0 cm/s AV Peak Gradient 10.0 mmHg LVOT Peak Velocity 109.0 cm/s LVOT Peak Gradient 4.8 mmHg AV Area Cont Eq pk 2.0 cm MV Area PHT 4.3 cm Mitral E Point Velocity 80.0 cm/s Mitral A Point Velocity 64.7 cm/s Mitral E to A Ratio 1.2 LV E' Lateral Velocity 7.4 cm/s Mitral E to LV E' Lateral Ratio 10.8 LV E' Septal Velocity 6.7 cm/s Mitral E to LV E' Septal Ratio 11.9 FINDINGS LEFT VENTRICLE The left ventricular systolic function is normal with an estimated ejection fraction in the range of 55-60%. Normal left ventricular size. Wall thickness is normal. There was limited left ventricular wall motion assessment due to poor endocardial visualization. RIGHT VENTRICLE Normal right ventricular size and systolic function. LEFT ATRIUM The left atrial size is normal. RIGHT ATRIUM The right atrium is not well visualized. ATRIAL SEPTUM Thickened atrial septum is noted with morphological features most consistent with a lipomatous atria l septum. AORTA The aortic root and proximal ascending aorta are normal in size on limited imaging. MITRAL VALVE Mild thickening of the mitral valve leaflets. Trace mitral valve regurgitation. No mitral valve stenosis. AORTIC VALVE Grossly normal aortic valve. No aortic valve stenosis or regurgitation. TRICUSPID VALVE Structurally normal tricuspid valve. There is trace tricuspid valve regurgitation. Normal estimated pulmonary pressures. PULMONARY VALVE The pulmonary valve is not well visualized. VESSELS The inferior vena cava is normal in size. PERICARDIUM No pericardial effusion. Yakov Duke DO (Electronically Signed) Final Date:13 September 2017 19:13
[2017-09-13] MEDS: ATORVASTATIN 10 MG TAB PO SCH (21:03)
[2017-09-14] VITALS (10 sets, daily range): BP systolic 121–130; BP diastolic 79–87; PULSE 66–86; RESP 16–18; TEMP 97.4–98.6; O2SAT 95–96
[2017-09-14 05:48] LABS: HEMOGLOBIN 13.8 GM/DL (13.0-17.0); MEAN CORPUSCULAR HEMOGLOBIN 27.7 PG (27.0-34.0); MEAN CORPUSCULAR HGB CONC 33.7 % (32.0-36.0); MEAN PLATELET VOLUME 8.1 FL (7.0-11.0); PLATELET COUNT 181 TH/MM3 (150-450); RED CELL DISTRIBUTION WIDTH 15.6 % (11.6-17.2)
[2017-09-14 06:17] LABS: CALCIUM 8.2 MG/DL (8.5-10.1); CREATININE 0.99 MG/DL (0.60-1.30)
[2017-09-14] MEDS ORDERED: LISI-519 PO (08:55)
[2017-09-14] MEDS ORDERED: BRIL90TA PO (08:55)
[2017-09-14] MEDS ORDERED: ASPI81 PO (08:55)
[2017-09-14] MEDS ORDERED: METO25TA3 PO (08:55)
[2017-09-14] MEDS ORDERED: LIPI10TA PO (08:55)
--- NOTE | 2017-09-14 08:55 | HHI.DCPOC ---
Discharge Care Plan Diagnosis: (1) Acute ST elevation myocardial infarction (STEMI) of inferior wall Goals to Promote Your Health * To prevent worsening of your condition and complications * To maintain your health at the optimal level Directions to Meet Your Goals Take your medications as prescribed Follow your dietary instruction Follow activity as directed Keep your appointments as scheduled Take your immunizations and boosters as scheduled If your symptoms worsen call your PCP, if no PCP go to Urgent Care Center or Emergency Room Smoking is Dangerous to Your Health. Avoid second hand smoke Call the 24-hour hour crisis hotline for domestic abuse at Sienna Ojeda MD Sep 14, 2017 08:55
--- NOTE | 2017-09-14 08:57 | HHI.DS ---
Discharge Summary Admission Date Sep 12, 2017 at 16:44 Admitting Diagnosis acute inferior STEMI Brief History - From Admission This is a 57-year-old male with a history of hypertension who presented with chest pain that started yesterday. Patient describes chest pain as a burning sensation. He stated that he thought he was having acid reflux but then he got diaphoretic and has shortness of breathing. Patient stated that he told his boss so his boss called 911 where he was brought to the emergency department. Patient was found to have inferior STEMI so was immediately brought back to the [facility] where patient had PCI distal RCA. When patient was seen by me he denies any chest pain, shortness of breathing, palpitation, lightheadedness dizziness. He stated he was doing well and was anxious to go home. Patient has no complaints. He stated that he was smoking 1 pack per day for about 40 years. Patient stated that he will no longer smoke any tobacco. Patient's at the bedside during the interview. All other review system reviewed and negative. CBC/BMP: 09/14/17 0525 09/14/17 0525 Significant Findings Laboratory Tests Test 09/12/17 16:10 09/13/17 03:45 09/14/17 05:25 White Blood Count 16.7 TH/MM3 (4.0-11.0) 15.0 TH/MM3 (4.0-11.0) Neutrophils (%) (Auto) 80.4 % (16.0-70.0) 85.3 % (16.0-70.0) Neutrophils # (Auto) 13.4 TH/MM3 (1.8-7.7) 12.8 TH/MM3 (1.8-7.7) Activated Partial Thromboplast Time 23.3 SEC (24.3-30.1) Bedside Glucose 186 MG/DL (68-110) Troponin I 0.27 NG/ML (0.02-0.05) Random Glucose 119 MG/DL (74-106) Calcium Level 8.2 MG/DL (8.5-10.1) 8.2 MG/DL (8.5-10.1) Chloride Level 109 MEQ/L (98-107) 108 MEQ/L (98-107) Estimat Glomerular Filtration Rate 80 ML/MIN (>89) 78 ML/MIN (>89) Pt Condition on Discharge: Good Discharge Disposition: Discharge Home Discharge Instructions DIET: Follow Instructions for: Heart Healthy Diet Activities you can perform: See Additionl Instruction Other Activity Instructions: as directed by your veterinary milk specialist. Sienna Ojeda MD Sep 14, 2017 08:57
[2017-09-14] MEDS: ASPIRIN 81 MG CHEW TAB PO SCH (09:08)
[2017-09-14] MEDS: METOPROLOL TARTRATE 25 MG TAB PO SCH (09:09)
[2017-09-14] MEDS: TICAGRELOR 90 MG TAB PO SCH (09:09)
[2017-09-14] MEDS: LISINOPRIL 5 MG TAB PO SCH (09:10)
--- NOTE | 2017-09-14 11:34 | PD.CARD.PN ---
Subjective Subjective Remarks Doing well No complaints Objective Medications Current Medications Medications (Trade) Dose Ordered Sig/Radha Route Start Time Stop Time Status Last Admin Nitroglycerin/ Dextrose 250 ml @ 3 mls/hr TITRATE PRN IV 09/12/17 16:30 09/12/17 19:00 (Aspirin Chew) 81 mg DAILY PO 09/13/17 09:00 09/14/17 09:08 (Brilinta) 90 mg BID PO 09/13/17 09:00 09/14/17 09:09 (Atropine Inj) 0.5 mg UNSCH PRN IV PUSH 09/12/17 17:30 (Lopressor) 12.5 mg BID PO 09/12/17 21:00 09/14/17 09:09 (Prinivil) 5 mg DAILY PO 09/13/17 09:00 09/14/17 09:10 (Lipitor) 10 mg HS PO 09/12/17 21:00 09/13/17 21:03 (Pill Splitter) 1 ea UNSCH PRN OTHER 09/12/17 17:45 Vital Signs / I&O Vital Signs Date Time Temp Pulse Resp B/P (MAP) Pulse Ox O2 Delivery O2 Flow Rate FiO2 09/14/17 10:00 70 09/14/17 09:00 70 09/14/17 08:00 80 09/14/17 07:00 98.6 76 18 123/79 (94) 95 09/14/17 07:00 78 09/14/17 05:00 70 09/14/17 04:00 68 09/14/17 04:00 97.7 70 16 121/87 (98) 96 09/14/17 03:00 68 09/14/17 02:00 66 09/14/17 01:00 86 09/14/17 00:00 70 09/14/17 00:00 97.4 75 18 130/83 (99) 95 09/13/17 23:00 66 09/13/17 22:00 72 09/13/17 21:00 72 09/13/17 20:00 98.3 76 16 135/81 (99) 97 09/13/17 20:00 77 09/13/17 19:00 80 09/13/17 18:00 80 09/13/17 17:09 74 09/13/17 16:02 75 09/13/17 15:22 97.9 75 19 123/83 (96) 96 09/13/17 15:00 83 09/13/17 14:00 78 09/13/17 13:00 74 09/13/17 12:10 75 I/O 09/13/17 09/13/17 09/13/17 09/14/17 09/14/17 09/14/17 07:00 15:00 23:00 07:00 15:00 23:00 Intake Total 1240 ml 900 ml 620 ml Output Total 400 ml 400 ml 850 ml Balance 840 ml 500 ml -230 ml Intake Oral 240 ml 900 ml 620 ml IV Total 1000 ml Output Urine Total 400 ml 400 ml 850 ml # Voids 2 # Bowel Movements 0 0 Physical Exam GENERAL: NAD, AAOx3 SKIN: Warm and dry. HEAD: Atraumatic. Normocephalic. EYES: Pupils equal and round. No scleral icterus. No injection or drainage. ENT: No nasal bleeding or discharge. Mucous membranes pink and moist. NECK: Trachea midline. No JVD. CARDIOVASCULAR: Regular rate and rhythm. RESPIRATORY: No accessory muscle use. Clear to auscultation. Breath sounds equal bilaterally. GASTROINTESTINAL: Abdomen soft, non-tender, nondistended. Hepatic and splenic margins not palpable. MUSCULOSKELETAL: Extremities without clubbing, cyanosis, or edema. No obvious deformities. NEUROLOGICAL: Awake and alert. No obvious cranial nerve deficits. Motor grossly within normal limits. Five out of 5 muscle strength in the arms and legs. Normal speech. PSYCHIATRIC: Appropriate mood and affect; insight and judgment normal. Laboratory Laboratory Tests Test 09/14/17 05:25 White Blood Count 10.0 TH/MM3 Red Blood Count 5.00 MIL/MM3 Hemoglobin 13.8 GM/DL Hematocrit 41.0 % Mean Corpuscular Volume 82.0 FL Mean Corpuscular Hemoglobin 27.7 PG Mean Corpuscular Hemoglobin Concent 33.7 % Red Cell Distribution Width 15.6 % Platelet Count 181 TH/MM3 Mean Platelet Volume 8.1 FL Blood Urea Nitrogen 15 MG/DL Creatinine 0.99 MG/DL Random Glucose 86 MG/DL Calcium Level 8.2 MG/DL Sodium Level 138 MEQ/L Potassium Level 3.8 MEQ/L Chloride Level 108 MEQ/L Carbon Dioxide Level 24.0 MEQ/L Anion Gap 6 MEQ/L Estimat Glomerular Filtration Rate 78 ML/MIN Assessment and Plan Problem List: (1) Acute ST elevation myocardial infarction (STEMI) of inferior wall ICD Codes: I21.19 - ST elevation (STEMI) myocardial infarction involving other coronary artery of inferior wall Status: Acute (2) CAD (coronary artery disease) ICD Codes: I25.10 - Atherosclerotic heart disease of [place] coronary artery without angina pectoris (3) Left main coronary artery disease ICD Codes: I25.10 - Atherosclerotic heart disease of [place] coronary artery without angina pectoris (4) HTN (hypertension) ICD Codes: I10 - Essential (primary) hypertension (5) Tobacco abuse ICD Codes: Z72.0 - Tobacco use (6) Tobacco abuse counseling ICD Codes: Z71.6 - Tobacco abuse counseling Assessment and Plan 1) Acute inferior STEMI s/p BMS to RCA ASA/Brilinta/BB/Statin/XIOMY-I 2) EF 55-60% 3) Residual left main disease Plan for follow up with Dr. Peralta in the office for consideration of CABG in 4 weeks Left a note for light duty at work, no strenuous activity Understands the risk of LM disease, if any further symptoms will present to the nearest ER 4) Cardiovascularly stable for discharge Yakov Duke DO Sep 14, 2017 11:34
== END 2017-09-14 12:30 | disposition home or self-care (01) | DRG 249 ==
LOC: NEPC 16:06 → NEDA 16:44 → HCVI 18:10 → HCPC 09-13 09:31
PROVIDERS: ADMIT Family Medicine; ATTEND Family Medicine
PROC: 02703DZ Dilation of Coronary Artery, One Artery with Intraluminal Device, Percutaneous Approach (ICD-10-PCS; principal; 2017-09-12)
PROC: 4A023N7 Measurement of Cardiac Sampling and Pressure, Left Heart, Percutaneous Approach (ICD-10-PCS; 2017-09-12)
PROC: B2111ZZ Fluoroscopy of Multiple Coronary Arteries using Low Osmolar Contrast (ICD-10-PCS; 2017-09-12)
PROC: B2151ZZ Fluoroscopy of Left Heart using Low Osmolar Contrast (ICD-10-PCS; 2017-09-12)
DX: I21.19 ST elevation (STEMI) myocardial infarction involving other coronary artery of inferior wall (principal); I10 Essential (primary) hypertension; I25.10 Atherosclerotic heart disease of native coronary artery without angina pectoris; F17.210 Nicotine dependence, cigarettes, uncomplicated
CPT/HCPCS: 71045; 80048; 82310; 82550; 83735; 83880; 84484; 85025; 85027; 85610; 85730; 92941; 93005; 93306; 93458; 96374; C1725; C1760; C1769; C1876; C1887; C1893; G0269; J0583; J1644; J2250; J2370; J3010; J7030; Q9967

== ENCOUNTER → 2017-10-22 | Outpatient (CLI) | payer BC ==
[~2017-10-22] MED LIST: ASPI81 PO; BRIL90TA PO; LIPI10TA PO; LISI-519 PO; METO25TA3 PO
[2017-10-22 12:01] LABS: BILIRUBIN, URINE NEG (NEG); BLOOD, URINE NEG (NEG); GLUCOSE,URINE NEG (NEG); KETONE, URINE NEG (NEG); NITRITE,URINE NEG (NEG); URINE COLOR YELLOW (YELLW/STRAW); URINE LEUKOCYTE ESTERASE NEG (NEG)
[2017-10-22 12:02] LABS: AUTOMATED NEUTROPHIL # 5.1 TH/MM3 (1.8-7.7); BASOPHIL % 0.5 % (0.0-2.0); EOSINOPHIL # 0.2 TH/MM3 (0-0.4); EOSINOPHIL % 2.6 % (0.0-4.0); HEMATOCRIT 45.7 % (39.0-51.0); HEMOGLOBIN 15.5 GM/DL (13.0-17.0); LYMPHOCYTE # 1.6 TH/MM3 (1.0-4.8); MEAN CELL VOLUME 83.3 FL (80.0-100.0); MEAN CORPUSCULAR HEMOGLOBIN 28.2 PG (27.0-34.0); MEAN CORPUSCULAR HGB CONC 33.9 % (32.0-36.0); MEAN PLATELET VOLUME 8.6 FL (7.0-11.0); MONO % 6.7 % (0.0-8.0); MONOCYTE # 0.5 TH/MM3 (0-0.9); NEUT % 68.2 % (16.0-70.0); PLATELET COUNT 142 TH/MM3 (150-450); RED BLOOD COUNT 5.49 MIL/MM3 (4.50-5.90); RED CELL DISTRIBUTION WIDTH 16.6 % (11.6-17.2); WHITE BLOOD COUNT 7.4 TH/MM3 (4.0-11.0)
[2017-10-22 12:12] LABS: PROTHROMBIN TIME - PATIENT 10.4 SEC (9.8-11.6)
[2017-10-22 12:22] LABS: BICARBONATE 28.4 MEQ/L (21.0-32.0); CALCIUM 9.1 MG/DL (8.5-10.1); CREATININE 1.24 MG/DL (0.60-1.30)
--- NOTE | 2017-10-22 12:40 | RADRPT ---
EXAM DATE/TIME: 10/22/2017 12:21 [facility] COMPARISON: No previous studies available for comparison. INDICATIONS : Evaluate for pneumonia, pneumothorax, or communicable disease. Pre op for CABG. MEDICAL HISTORY : Hypertension. SURGICAL HISTORY : Cardiac cath w/stent placement. ENCOUNTER: Initial ACUITY: 1 day PAIN SCORE: 0/10 LOCATION: chest FINDINGS: PA and lateral views of the chest demonstrate the lungs to be symmetrically aerated without evidence of mass, infiltrate or effusion. The cardiomediastinal contours are unremarkable. Osseous structure s are intact. CONCLUSION: Normal examination. Sage Cook Jr., MD on October 22, 2017 at 12:39 Board Certified Radiologist. This report was verified electronically.
--- NOTE | 2017-10-23 06:50 | EKG ---
Date Performed: 10/22/2017 Time Performed: 11:45:49 PTAGE: 57 years EKG: Sinus rhythm INFERIOR MYOCARDIAL INFARCTION, OF INDETERMINATE AGE WITH POSTERIOR EXTENSION ABNORMAL ECG Compared to PREVIOUS TRACING , the injury pattern has resolved. PREVIOUS TRACING 09/12/2017 16.20 .19 DOCTOR: Eliel Santoro Interpretating Date/Time 10/23/2017 06:48:46
--- NOTE | 2017-10-29 14:56 | PD.CAR.PN ---
CVT Progress Note Subjective/Hospital Course: sts data discussed with pt RISK SCORES About the STS Risk Calculator Procedure: CAB Only Risk of Mortality: 0.371% Morbidity or Mortality: 6.773% Long Length of Stay: 1.761% Short Length of Stay: 72.675% Permanent Stroke: 0.352% Prolonged Ventilation: 4.016% DSW Infection: 0.246% Renal Failure: 1.441% Reoperation: 2.726% Virginia Alford Oct 29, 2017 14:56
== END ==
LOC: CPRE 11:21
PROVIDERS: ATTEND Thoracic Surgery (Cardiothoracic Vascular Surgery)
DX: Z01.812 Encounter for preprocedural laboratory examination (principal); Z01.810 Encounter for preprocedural cardiovascular examination; Z01.811 Encounter for preprocedural respiratory examination; I25.10 Atherosclerotic heart disease of native coronary artery without angina pectoris
CPT/HCPCS: 36415; 71046; 80048; 81001; 85025; 85610; 85730; 86850; 86900; 86901; 87640; 87641; 93005

== ENCOUNTER 2017-10-29 07:30 | Inpatient (IN) | payer BC ==
[~2017-10-29] VITALS: Ht 177.8 cm; Wt 107.5 kg
[2017-10-30] VITALS (9 sets, daily range): BP systolic 101–127; BP diastolic 59–86; PULSE 74–93; RESP 14–16; TEMP 97–98.6; O2SAT 93–98
[2017-10-30] MEDS ORDERED: INSULIN REGULAR 100 UNITS in NS 100 ML IV PRN (06:00)
[2017-10-30] MEDS ORDERED: SODIUM CHLORID 0.9% 500 ML IV PRN (06:00)
[2017-10-30] MEDS ORDERED: ceFAZolin 2 GM PREMIX 50 ML IV SCH (06:00)
[2017-10-30] MEDS ORDERED: CHLORHEXIDINE GLUCONATE 2 % 1 PACK (2 CLOTHS) TOPICAL PRN (06:00)
[2017-10-30] MEDS ORDERED: METOPROLOL TARTRATE 25 MG TAB PO SCH (06:00)
[2017-10-30] MEDS ORDERED: PAPAVERINE 60 MG-NITROGLYCERIN 100 MCG-DILTIAZEM 100 MG in NS 100 ML IRRIGATION SCH ×4 (06:00)
[2017-10-30] MEDS ORDERED: LACTATED RINGER'S 1000 ML IV PRN (06:00)
[2017-10-30] MEDS ORDERED: CEFAZOLIN 500 MG in NS IRR BTL 500 ML IRRIGATION SCH (06:00)
[2017-10-30] MEDS ORDERED: METOPROLOL TARTRATE 25 MG TAB PO PRN (06:00)
[2017-10-30] MEDS ORDERED: SODIUM CHLORIDE 0.9% FLUSH 10 ML FLUSH IV FLUSH PRN ×2 (06:00→12:00)
[2017-10-30] MEDS ORDERED: POVIDONE IODINE 5% (ANTISEPSIS KIT) 4 APPLICATIONS EACH NARE PRN (06:00)
[2017-10-30] MEDS ORDERED: CHLORHEXIDINE GLUCONATE 4% SOLN 120 ML BTL TOPICAL SCH (06:00)
[2017-10-30] MEDS ORDERED: DEXTROSE 50% IN WATER 50 ML VIAL(D50) IV PUSH PRN ×2 (06:00→12:15)
[2017-10-30] MEDS ORDERED: HEPARIN SODIUM - SQ 10,000 UNITS/ML VIAL ONE (06:31)
[2017-10-30] MEDS ORDERED: VANCOMYCIN HCL 1000 MG VIAL ONE (06:31)
[2017-10-30] MEDS ORDERED: ceFAZolin 2 GM PREMIX 50 ML ONE (06:32)
[2017-10-30] MEDS ORDERED: ceFAZolin INJ 1,000 MG VIAL ONE (11:22)
--- NOTE | 2017-10-30 11:41 | PD.OP ---
cc: Raheel Peralta MD; Yakov Duke DO Operative Report Date of Surgery: Oct 30, 2017 Preoperative Diagnosis: Postoperative Diagnosis: Procedure: 1. Off-pump Coronary Artery Bypass Grafting x 2 with Left Internal Mammary Artery (RILEY) to the Left Anterior Descending (LAD), reverse saphenous vein graft to the Ramus Marginalis (RM) 2. Left Leg Endoscopic Vein [place] 3. Intraoperative Vein Mapping Surgeon: Raheel Peralta Security Nurse(s): Renetta Frausto Operation and Findings: PREPROCEDURE DIAGNOSES 1. Multi-Vessel Coronary Artery Disease. 2. Acute Myocardial Infarction (STEMI) - s/p Emergent PCI RCA 3. Left Main Stenosis POSTPROCEDURE DIAGNOSES Same SURGICAL PROCEDURE 1. Off-pump Coronary Artery Bypass Grafting x 2 with Left Internal Mammary Artery (RILEY) to the Left Anterior Descending (LAD), reverse saphenous vein graft to the Ramus Marginalis (RM) 2. Left Leg Endoscopic Vein [place] 3. Intraoperative Vein Mapping SURGEON Raheel Peralta MD REGISTERED MASSAGE THERAPIST Nadja Frausto [facility] ANESTHESIA General endotracheal PHYSICIAN OFFICE [facility] Ramirez MD PREPARATION ChloraPrep. COUNTS Needle, sponge, and instrument counts were correct. DRAINS Two 32-Vietnamese mediastinal tubes. COMPLICATIONS None. INDICATIONS FOR PROCEDURE The patient is a 57-year-old initially presenting with STEMI and multi-vessel coronary artery disease. He underwent emergent PCI of his culprit RCA lesion and is being brought to the operating room for surgical revascularization therapy of the remaining left main stenosis. PROCEDURE Patient was brought to the operating room and placed supine on the OR table. Following the induction of adequate general endotracheal anesthesia and placement of appropriate monitoring devices, intraoperative vein mapping was performed which revealed suitable-caliber conduit in the both legs. The patient was then prepped and draped in standard sterile fashion. Next, 2500 units of intravenous heparin was given. Left thigh greater saphenous veins were harvested endoscopically. This appeared to be a good-caliber conduits. Simultaneously, a median sternotomy was performed and the left internal mammary artery dissected free off the posterior sternal table. The patient was systemically heparinized and anticoagulation monitored by serial ACT measurements. The internal mammary artery had good pulsatile flow in it and was an excellent-caliber conduit. The pericardium was then divided in the midline, the cradle created and targets analyzed. At this point, all anastomoses were performed in a beating-heart fashion using the [employer] stabilizing system. The left internal mammary artery was anastomosed to the distal LAD (1.75 mm) in an end-to-side fashion using 7-0 Prolene. The next segment was anastomosed to the ramus (2 mm) in an end-to-side fashion using a running 7-0 Prolene. The proximal anastomosis was then constructed to the ascending aorta in a running manner using 6-0 Prolene. All anastomotic sites were inspected and appeared to be hemostatic and patent. Protamine solution was given. Strict hemostasis was assured. The closure was undertaken. 2 chest tubes were placed. The pericardium was reapproximated in the midline. The sternum was approximated using sternal wires. The muscular and fascial layer were then closed in 3 layers. The endoscopic vein harvest sites were closed in 2 layers. The patient tolerated the procedure well and was transferred to CVICU in stable condition. Raheel Peralta MD Oct 30, 2017 11:41
[2017-10-30] MEDS ORDERED: ACETAMINOPHEN 325 MG TAB PO PRN (12:00)
[2017-10-30] MEDS ORDERED: AMINOCAPROIC ACID INJ 250 MG/ML 20 ML VIAL IV ONE (12:00)
[2017-10-30] MEDS ORDERED: SODIUM CHLOR 0.9% 1000 ML INJ 2,000 ML IV ONE (12:00)
[2017-10-30] MEDS ORDERED: ePHEDrine/NS 25 MG/5 ML SYRINGE IV ONE (12:00)
[2017-10-30] MEDS ORDERED: ALBUMIN 5% INJ 250 ML IV PRN (12:00)
[2017-10-30] MEDS ORDERED: hydrALAZINE HCL 20 MG/ML VIAL IV PUSH PRN (12:00)
[2017-10-30] MEDS ORDERED: SUCCINYLCHOLINE CHLORIDE 100 MG/5 ML SYRINGE IV PUSH ONE (12:00)
[2017-10-30] MEDS ORDERED: HEPARIN SODIUM - SQ 10,000 UNITS/ML VIAL OTHER ONE (12:00)
[2017-10-30] MEDS ORDERED: Post-op Orders (for Pharmacy) OTHER ONE (12:00)
[2017-10-30] MEDS ORDERED: ACETAMINOPHEN 650 MG SUPP RECTAL PRN (12:00)
[2017-10-30] MEDS ORDERED: PHENYLEPHRINE HCL 10 MG/ML VIAL IV ONE (12:00)
[2017-10-30] MEDS ORDERED: SODIUM CHLOR 0.9% 250 ML INJ 250 ML IV ONE (12:00)
[2017-10-30] MEDS ORDERED: MAGNESIUM SULFATE 1 GM/2 ML VIAL IV ONE (12:00)
[2017-10-30] MEDS ORDERED: MEPERIDINE HCL 25 MG/ML VIAL IV PUSH PRN (12:00)
[2017-10-30] MEDS ORDERED: PROTAMINE SULFATE 250 MG/25 ML VIAL IV ONE (12:00)
[2017-10-30] MEDS ORDERED: LACTATED RINGER'S 1000 ML INJ 500 ML IV PRN (12:00)
[2017-10-30] MEDS ORDERED: PHENYLEPH/NS 1000 MCG/10 ML SYR IV ONE (12:00)
[2017-10-30] MEDS ORDERED: ONDANSETRON HCL 4 MG/2 ML VIAL IV PUSH PRN (12:00)
[2017-10-30] MEDS ORDERED: NITROGLYCERIN 50 MG/DEXTROSE 5% SOLN 250 ML BTL IV ONE (12:00)
[2017-10-30] MEDS ORDERED: ARTIFICIAL TEARS OPTH OINT 3.5 APPLIC/3.5 GM TUBO EACH EYE ONE (12:00)
[2017-10-30] MEDS ORDERED: NS 100 ML (PAB BAG) 100 ML IV ONE (12:00)
[2017-10-30] MEDS ORDERED: SODIUM BICARBONATE 8.4% INJ 50 MEQ/50 ML SYR IV ONE (12:00)
[2017-10-30] MEDS ORDERED: METOPROLOL TARTRATE 5 MG/5 ML VIAL IV ONE (12:00)
[2017-10-30] MEDS ORDERED: POTASSIUM CHLORIDE 20 MEQ CONTROLLED RELEASE TAB PO PRN ×2 (12:00)
[2017-10-30] MEDS ORDERED: VECURONIUM BROMIDE 10 MG VIAL IV ONE (12:00)
[2017-10-30] MEDS ORDERED: MAGNESIUM SULFATE INJ 2 GM in SODIUM CHLORIDE 0.9% INJ 100 ML IV PRN ×2 (12:00→12:15)
[2017-10-30] MEDS ORDERED: DEXMEDETOMIDINE HCL 200 MCG/2 ML VIAL IV ONE (12:00)
[2017-10-30] MEDS ORDERED: POTASSIUM CHLOR 20 MEQ PREMIX 100 ML IV PRN ×4 (12:00→22:15)
[2017-10-30] MEDS ORDERED: MIDAZOLAM HCL 2 MG/2 ML VIAL ONE (12:14)
[2017-10-30] MEDS ORDERED: fentaNYL CITRATE 250 MCG/5 ML AMP ONE (12:14)
[2017-10-30] MEDS ORDERED: CALCIUM CHLORIDE 10% 1 GRAM/10 ML VIAL IV PUSH PRN (12:15)
[2017-10-30] MEDS ORDERED: INSULIN REGULAR (IV INFUSION) 100 UNITS in SODIUM CHLORIDE 0.9% INJ 99 ML IV PRN (12:15)
[2017-10-30] MEDS ORDERED: RESP: RACEPINEPHRINE 2.25% 0.5 ML NEB NEB PRN (12:15)
[2017-10-30] MEDS ORDERED: SODIUM BICARBONATE 8.4% SOLN 50 MEQ/50 ML VIAL IV PUSH PRN ×2 (12:15)
[2017-10-30] MEDS ORDERED: RESP: ALBUTEROL 2.5 MG/IPRATROPIUM 0.5 MG NEB (PRN) NEB (12:15)
[2017-10-30] MEDS ORDERED: CLEVIDIPINE INJ 50 ML IV PRN (12:30)
[2017-10-30] MEDS ORDERED: NITROGLYCERIN-D5W 50 MG/250 ML 250 ML IV PRN (12:30)
[2017-10-30] MEDS ORDERED: PHENYLEPHRINE INJ 40 MG in DEXTROSE 5% IN WATE 500 ML INJ 496 ML IV PRN ×2 (12:30)
[2017-10-30] MEDS ORDERED: DEXMEDETOMIDINE INJ 200 MCG in SODIUM CHLORIDE 0.9% INJ 50 ML IV PRN (12:30)
[2017-10-30] MEDS ORDERED: DOPamine 800 MG/500 ML INJ 500 ML IV PRN (12:45)
[2017-10-30] MEDS ORDERED: METOPROLOL TARTRATE 5 MG/5 ML VIAL IV PUSH PRN (12:45)
[2017-10-30] MEDS ORDERED: DOBUTamine PREMIX DRIP 250 ML IV PRN (12:45)
--- NOTE | 2017-10-30 12:49 | RADRPT ---
EXAM DATE/TIME: 10/30/2017 12:09 [facility] COMPARISON: CHEST SINGLE AP, September 12, 2017, 16:21. INDICATIONS : Post CABG. MEDICAL HISTORY : Hypertension. SURGICAL HISTORY : Cardiac cath w/stent placement. ENCOUNTER: Initial ACUITY: 1 day PAIN SCORE: Non-responsive. LOCATION: Bilateral chest FINDINGS: Postoperative findings from CABG. Endotracheal tube tip is 3.1 cm below the macario. Bilateral chest t ubes in place. Right internal jugular catheter tip projects at the cavoatrial junction. No evidence p neumothorax. Mild opacity without consolidation of the left lung base. Blunting of both costophrenic angles. Sternal wire sutures are intact. CONCLUSION: Postoperative lines and tubes from cardiac surgery. Sage Lopes MD on October 30, 2017 at 12:46 Board Certified Radiologist. This report was verified electronically.
[2017-10-30] MEDS: ACETAMINOPHEN 1000 MG/100 ML 100 ML IV SCH ×2 (12:58→19:49)
--- NOTE | 2017-10-30 13:04 | PD.CAR.PN ---
CVT Progress Note Subjective/Hospital Course: 57/ male presented to hospital 09/12/17 woth STEMI, underwent emergent PCI to RCA with a bare metal stent by Dr Pastrana. He also had left main stenosis with small and diffusely diseased distal vessels. He was followed up by Dr Peralta on 10/08/17 for surgical management of his left sided cardiac pathology/ EF 55%. He was electively admitted today for surgery PMH : hep C, HTN, CAD PCI / stent RCA, Objective: Vital Signs Date Time Temp Pulse Resp B/P (MAP) Pulse Ox O2 Delivery O2 Flow Rate FiO2 10/30/17 12:50 160/92 10/30/17 06:27 98.1 67 18 167/95 (119) 98 Virginia Alford Oct 30, 2017 13:04
--- NOTE | 2017-10-30 13:27 | HHI.FF ---
Face to Face Verification Diagnosis: (1) S/P CABG x 2 (2) CAD (coronary artery disease) (3) Tobacco abuse (4) HTN (hypertension) (5) Left main coronary artery disease Home Health Nursing Order: Signs/symptoms of disease process Medication education-adverse effect Wound care and dressing changes Nursing assessment with vital signs Instructions: Heart and Vascular Surgery patients *Special attention to sternal dressing Mandatory frequency Assess and evaluation, 4 days in a row The next week 3X week 2 times a week for 4 weeks 1 time a week for 5 weeks Schedule Heart and Vascular patients for full 60 day certification period Initial visit Review Open Heart Surgery Discharge Instructions (Sternal precautions, Activity, Elastic hose, Incision care, Driving, Incentive spirometry, Smoking, [place], Work and other) Need Betadine to paint incision Medication reconciliation Importance of follow up care/ check on appointments Make calendar record temperature daily When to call [facility] nurse, review instructions, phone list Incentive Spirometry, demonstration Visit 1- Begin discharge instruction for patient family and/ or caregiver using teach back method- Signs and symptoms of infection Disease characteristics Medicines and side effects Foods and nutrition/ appetite Infection control/ hand washing/ hygiene Visit 2- Continue teaching Discharge instructions- include additional information on smoking cessation , sternal dressing (sternal vac) Visit 3- Continue teaching- Cough and deep breathing, incision monitoring. Choose my plate Visit 4- Continue teaching- Discuss limitations Discuss how they are feeling Discuss progress toward goals Remaining visits- continue teaching and monitoring For any questions please call : Saturday 8am-5pm Heart & Vascular Surgery Office ( Dr. Peralta & Dr. Olmstead), After Hours / Nights (5pm -8am) Weekends and Holidays Please call [facility] Cardiac Intermediate Care Unit (CIC) Charge Nurse PREVENA Single Use Negative Wound Therapy System Caregiver Instruction Sheet 1. A Prevena dressing system was applied to the chest incision during surgery , to promote wound healing. It works via a suction device (negative pressure wound therapy) to remove low to moderate levels of exudate (drainage) and infectious materials. We recommend that the device stay in place for up to seven days, from day of surgery. 2. Day of Surgery___3/ Day of Removal ____3/ 3. The dressing should only be removed by a health family day care worker. Please arrange removal of device to coincide with Home Health visit and or with Nursing staff at Rehab 4. If skin reddening or irritation of skin occurs, or excessive drainage, please notify the Cardiovascular Surgeons office at [phone]. 5. Light showering is permissible; however the pump should be disconnected and placed in safe location, where it will not get wet. The dressing should not be exposed to direct spray or submerged in water. No bath tub / shower only. Ensure the end of the tubing attached to the dressing is facing down so that water does not enter the top of the tube. 6. To remove Prevena dressing: press purple button to turn off device / remove the suction. Then disconnect the tubing from the pump. The fixation strips should be stretched away from the skin and the dressing lifted at one corner and peeled back until it has been fully removed. 7. After removal, it is ok to shower daily using liquid dial soap and clean wash cloth, rinse and pat dry, and leave incision open to air dry. For any concerns regarding Prevena dressing, and or wounds, please contact Supriya Scott, patient navigator at [phone] or notify the Cardiovascular Surgeons office at [phone]. Incentive spirometry Q1 hr x 10, while awake, also use acapella device hourly whole awake Sternal Breast Bone Precautions: NO pushing or pulling, ( pt must use sternal pillow to support chest with all activities and with coughing ( takes up to 3 months breast bone to heal ) Daily incision care: ok to shower daily, no tub bath. Wash all incisions with liquid dial soap, clean wash cloth to each site, rinse and pat dry. Observe for any signs of infection, such as drainage which is dark yellow, man, green or foul smelling. Immediately report to the surgeon any drainage from the chest incision, or legs, and for any abnormal drainage from the chest tube sites. Notify surgeon if any temp >101.5 degrees F. When specialty dressing removed/ or if you do not have one, continue to shower daily as above, then rinse and pat incision dry and paint with betadine daily x 5 days. Allow steri strips to fall off if you have any. Avoid lotions, creams, salves, oils, etc. for the first month Please see attached forms for additional instructions regarding post Open Heart specialty wound vacuum dressings. TREV or Prevena , Dressing to be removed by Nursing staff on _11/06/17 F/U appointment: as per [place] instructions: PCP in 2 weeks, CV surgeon 2 weeks, Field Sales Representative 3-4 weeks For any questions regarding incisions/ dressing / meds / post op care or above Symptoms, Saturday 8am-5pm Heart & Vascular Surgery Office ( Dr. Peralta & Dr. Olmstead), After Hours / Nights (5pm -8am) Weekends and Holidays Please call [facility] Cardiac Intermediate Care Unit (CIC) Charge Nurse I have seen patient Eduardo Soto on 10/30/17. My clinical findings support the need for the requested home health care services because: Deconditioned w/ increased weakness I certify that my clinical findings support that this patient is homebound because: Post-op weakness Virginia Alford Oct 30, 2017 13:27
[2017-10-30] MEDS: CALCIUM CHLORIDE INJ 1 GM in SODIUM CHLORIDE 0.9% INJ 100 ML IV PRN ×3 (13:28→23:14)
[2017-10-30] MEDS: RESP: ALBUTEROL 2.5 MG/IPRATROPIUM 0.5 MG NEB (SCH) NEB ×2 (15:44→21:40)
[2017-10-30] MEDS: KETOROLAC TROMETHAMINE 30 MG/ML (IVP) VIAL IV PUSH PRN (18:27)
[2017-10-30] MEDS: ceFAZolin 2 GM PREMIX 50 ML IV SCH (19:49)
[2017-10-30] MEDS: SODIUM CHLORIDE 0.9% FLUSH 10 ML FLUSH IV FLUSH SCH (20:57)
[2017-10-31] VITALS (11 sets, daily range): BP systolic 103–131; BP diastolic 51–79; PULSE 86–108; RESP 16–20; TEMP 97.9–98.8; O2SAT 92–95
[2017-10-31] MEDS: ACETAMINOPHEN 1000 MG/100 ML 100 ML IV SCH ×2 (01:00→07:45)
[2017-10-31] MEDS: KETOROLAC TROMETHAMINE 30 MG/ML (IVP) VIAL IV PUSH PRN (01:27)
[2017-10-31] MEDS: CALCIUM CHLORIDE INJ 1 GM in SODIUM CHLORIDE 0.9% INJ 100 ML IV PRN (03:23)
[2017-10-31] MEDS: RESP: ALBUTEROL 2.5 MG/IPRATROPIUM 0.5 MG NEB (SCH) NEB ×4 (04:23→20:56)
[2017-10-31] MEDS: ceFAZolin 2 GM PREMIX 50 ML IV SCH ×3 (04:32→20:00)
[2017-10-31] MEDS: PANTOPRAZOLE SOD 40 MG DELAYED RELEASE TAB PO SCH (05:12)
[2017-10-31 05:20] LABS: HEMATOCRIT 36.8 % (39.0-51.0); HEMOGLOBIN 12.3 GM/DL (13.0-17.0); MEAN CELL VOLUME 83.5 FL (80.0-100.0); MEAN CORPUSCULAR HEMOGLOBIN 27.9 PG (27.0-34.0); MEAN CORPUSCULAR HGB CONC 33.5 % (32.0-36.0); MEAN PLATELET VOLUME 8.4 FL (7.0-11.0); PLATELET COUNT 121 TH/MM3 (150-450); RED BLOOD COUNT 4.41 MIL/MM3 (4.50-5.90)
[2017-10-31 05:57] LABS: BICARBONATE 23.7 MEQ/L (21.0-32.0); CALCIUM 9.7 MG/DL (8.5-10.1); CREATININE 1.33 MG/DL (0.60-1.30)
--- NOTE | 2017-10-31 06:21 | RADRPT ---
EXAM DATE/TIME: 10/31/2017 05:27 [facility] COMPARISON: CHEST SINGLE AP, October 30, 2017, 12:09. INDICATIONS : Shortness of breath, possible pulmonary disease. MEDICAL HISTORY : Hypertension. SURGICAL HISTORY : Coronary artery stent. ENCOUNTER: Subsequent ACUITY: 2 days PAIN SCORE: 10/10 LOCATION: Bilateral chest FINDINGS: From the prior study the endotracheal tube has been removed. Right-sided central line and bilateral t horacostomy tubes remain. No pneumothorax. Mild bibasilar atelectasis. Tiny bilateral pleural effusio ns. Heart is normal in size. Median sternotomy wires noted. CONCLUSION: 1. Tiny bilateral pleural effusions and mild bibasilar atelectasis. This is stable. Sage Cook Jr., MD on October 31, 2017 at 6:18 Board Certified Radiologist. This report was verified electronically.
[2017-10-31] MEDS: SODIUM CHLORIDE 0.9% FLUSH 10 ML FLUSH IV FLUSH SCH ×2 (07:44→21:00)
[2017-10-31] MEDS ORDERED: BISACODYL 10 MG SUPP RECTAL PRN (09:00)
[2017-10-31] MEDS ORDERED: FUROSEMIDE 20 MG/2 ML VIAL IV PUSH ONE ×2 (09:00→09:45)
[2017-10-31] MEDS ORDERED: SOD PHOSPHATE/SOD BIPHOSPHATE (ADULT) ENEMA 133ML RECTAL PRN (09:00)
[2017-10-31] MEDS ORDERED: DEXTROSE 50% IN WATER 50 ML VIAL(D50) IV PUSH PRN (09:00)
[2017-10-31] MEDS ORDERED: GLUCAGON 1 MG/ML VIAL OTHER PRN (09:00)
[2017-10-31] MEDS ORDERED: PILL SPLITTER OTHER PRN (09:15)
--- NOTE | 2017-10-31 09:21 | PD.CAR.PN ---
CVT Progress Note Subjective/Hospital Course: 57/ male presented to hospital 09/12/17 with STEMI, underwent emergent PCI to RCA with a bare metal stent by Dr Pastrana. He also had left main stenosis with small and diffusely diseased distal vessels. He was followed up by Dr Peralta on 10/08/17 for surgical management of his left sided cardiac pathology/ EF 55%. He was electively admitted today for surgery PMH : hep C, HTN, CAD PCI / stent RCA, surgery: 10/30+ 1. Off-pump Coronary Artery Bypass Grafting x 2 with Left Internal Mammary Artery (RILEY) to the Left Anterior Descending (LAD), reverse saphenous vein graft to the Ramus Marginalis (RM) 2. Left Leg Endoscopic Vein [place] 3. Intraoperative Vein Mapping extubated after surgery 2700cc crystalloid, 750cc cell saver, 200cc EBL 10/31 doing well , up in chair on nasal cannula gentle diuresis , start BB / transfer to stepdown Objective: GENERAL: A&O x 3 SKIN: Warm and dry. prevena dressing to chest, cesar wrap to left leg HEAD: Normocephalic. EYES: No scleral icterus. No injection or drainage. NECK: Supple, trachea midline. No JVD or lymphadenopathy. CARDIOVASCULAR: Regular rate and rhythm without murmurs, gallops, or rubs. RESPIRATORY: Breath sounds equal bilaterally. No accessory muscle use. chest tube to wall suction, no air leak / drained 520cc/ 12 hrs GASTROINTESTINAL: Abdomen soft, non-tender, nondistended. MUSCULOSKELETAL: No cyanosis, or edema. BACK: Nontender without obvious deformity. No CVA tenderness. Vital Signs Date Time Temp Pulse Resp B/P (MAP) Pulse Ox O2 Delivery O2 Flow Rate FiO2 10/31/17 07:21 16 10/31/17 03:00 95 Nasal Cannula 4.00 10/31/17 03:00 87 10/31/17 03:00 98.2 91 16 124/79 (94) 95 114/51 (72) 10/31/17 01:20 98.6 10/30/17 23:00 93 Nasal Cannula 4.00 10/30/17 23:00 98.6 93 16 123/86 (98) 93 127/59 (81) 10/30/17 23:00 89 10/30/17 21:31 98 Nasal Cannula 4.00 10/30/17 21:00 98.6 10/30/17 19:45 16 10/30/17 19:00 96 Nasal Cannula 4.00 10/30/17 19:00 91 10/30/17 19:00 97.0 82 16 108/82 (91) 96 124/69 (87) 10/30/17 16:06 98.6 10/30/17 15:00 94 Nasal Cannula 4.00 10/30/17 15:00 77 10/30/17 15:00 97.7 77 16 117/75 (89) 94 118/71 (87) 10/30/17 14:03 94 Nasal Cannula 4 10/30/17 14:00 Nasal Cannula 4.00 10/30/17 13:00 40 10/30/17 13:00 102/68 10/30/17 12:50 160/92 10/30/17 12:00 94 Mechanical Ventilator 75 10/30/17 12:00 75 10/30/17 12:00 74 10/30/17 12:00 98.2 74 14 101/71 (81) 94 112/65 (81) 10/30/17 12:00 96 50 10/30/17 11:58 98.6 Labs: Laboratory Tests Test 10/31/17 05:00 White Blood Count 13.0 TH/MM3 (4.0-11.0) Red Blood Count 4.41 MIL/MM3 (4.50-5.90) Hemoglobin 12.3 GM/DL (13.0-17.0) Hematocrit 36.8 % (39.0-51.0) Mean Corpuscular Volume 83.5 FL (80.0-100.0) Mean Corpuscular Hemoglobin 27.9 PG (27.0-34.0) Mean Corpuscular Hemoglobin Concent 33.5 % (32.0-36.0) Red Cell Distribution Width 17.0 % (11.6-17.2) Platelet Count 121 TH/MM3 (150-450) Mean Platelet Volume 8.4 FL (7.0-11.0) Blood Urea Nitrogen 26 MG/DL (7-18) Creatinine 1.33 MG/DL (0.60-1.30) Random Glucose 107 MG/DL (74-106) Calcium Level 9.7 MG/DL (8.5-10.1) Magnesium Level 2.0 MG/DL (1.5-2.5) Sodium Level 140 MEQ/L (136-145) Potassium Level 4.8 MEQ/L (3.5-5.1) Chloride Level 107 MEQ/L (98-107) Carbon Dioxide Level 23.7 MEQ/L (21.0-32.0) Anion Gap 9 MEQ/L (5-15) Estimat Glomerular Filtration Rate 55 ML/MIN (>89) Result Diagram: 10/31/17 0500 10/31/17 0500 Telemetry: NSR, no EKG changes (1) CAD (coronary artery disease) (2) S/P CABG x 2 Plan: ASA, statin , BB gentle diuresis OOB, ambulate transfer to stepdown CM to eval for HHC (3) Tobacco abuse (4) HTN (hypertension) Plan: stable (5) Left main coronary artery disease Virginia Alford Oct 31, 2017 09:21
[2017-10-31] MEDS: MAGNESIUM HYDROXIDE SUSP 30 ML CUP PO SCH (09:28)
[2017-10-31] MEDS: DOCUSATE SODIUM 100 MG CAP PO SCH ×2 (09:34→21:00)
[2017-10-31] MEDS: ASPIRIN 81 MG CHEW TAB PO SCH (09:34)
[2017-10-31] MEDS: MULTIVITAMINS/MINERALS THERAPEUTIC TAB PO SCH (09:34)
[2017-10-31] MEDS: METOPROLOL TARTRATE 25 MG TAB PO SCH ×2 (09:35→21:00)
[2017-10-31] MEDS: CLOPIDOGREL 75 MG TAB PO SCH (09:35)
[2017-10-31] MEDS: oxyCODONE/ACETAMINOPHEN 5 MG/325 MG TAB PO PRN ×4 (09:56→22:44)
[2017-10-31] MEDS: INSULIN ASPART SUPPLEMENTAL SCALE SQ SCH ×4 (10:49→22:00)
--- NOTE | 2017-10-31 13:23 | EKG ---
Date Performed: 10/31/2017 Time Performed: 04:54:42 PTAGE: 57 years EKG: Sinus rhythm Inferior infarct - age undetermined Anterolateral T wave changes may be due to myocardial ischemia C ompared to previous tracing there has been a slight increase in the lateral T wave changes. No other significant serial change. Abnormal ECG PREVIOUS TRACING : 10/22/2017 11.45 DOCTOR: Shaila Shanks Interpretating Date/Time 10/31/2017 13:23:11
[2017-10-31] MEDS: MORPHINE SULFATE 2 MG/ML INJ IV PUSH PRN (18:46)
[2017-10-31] MEDS: ATORVASTATIN 10 MG TAB PO SCH (21:00)
[2017-10-31] MEDS: SENNOSIDES 8.6 MG TAB PO SCH (21:00)
[2017-11-01] VITALS (27 sets, daily range): BP systolic 115–137; BP diastolic 65–76; PULSE 94–111; RESP 16–18; TEMP 98–99.2; O2SAT 92–94
[2017-11-01] MEDS: ceFAZolin 2 GM PREMIX 50 ML IV SCH (03:30)
[2017-11-01] MEDS: MORPHINE SULFATE 2 MG/ML INJ IV PUSH PRN ×2 (04:34→04:49)
[2017-11-01] MEDS: PANTOPRAZOLE SOD 40 MG DELAYED RELEASE TAB PO SCH (05:22)
[2017-11-01] MEDS: oxyCODONE/ACETAMINOPHEN 5 MG/325 MG TAB PO PRN ×5 (05:22→22:23)
[2017-11-01 05:25] LABS: AUTOMATED NEUTROPHIL # 12.6 TH/MM3 (1.8-7.7); BASOPHIL % 0.3 % (0.0-2.0); EOSINOPHIL % 0.1 % (0.0-4.0); HEMATOCRIT 35.3 % (39.0-51.0); HEMOGLOBIN 11.7 GM/DL (13.0-17.0); LYMPH % 8.8 % (9.0-44.0); LYMPHOCYTE # 1.4 TH/MM3 (1.0-4.8); MEAN CELL VOLUME 84.6 FL (80.0-100.0); MEAN CORPUSCULAR HEMOGLOBIN 28.1 PG (27.0-34.0); MEAN CORPUSCULAR HGB CONC 33.2 % (32.0-36.0); MEAN PLATELET VOLUME 8.8 FL (7.0-11.0); MONO % 10.4 % (0.0-8.0); MONOCYTE # 1.6 TH/MM3 (0-0.9); NEUT % 80.4 % (16.0-70.0); PLATELET COUNT 129 TH/MM3 (150-450); RED BLOOD COUNT 4.17 MIL/MM3 (4.50-5.90); RED CELL DISTRIBUTION WIDTH 17.8 % (11.6-17.2); WHITE BLOOD COUNT 15.7 TH/MM3 (4.0-11.0)
[2017-11-01 05:37] LABS: BICARBONATE 24.6 MEQ/L (21.0-32.0); CALCIUM 8.9 MG/DL (8.5-10.1); CREATININE 1.37 MG/DL (0.60-1.30); MAGNESIUM 2.4 MG/DL (1.5-2.5)
[2017-11-01] MEDS: RESP: ALBUTEROL 2.5 MG/IPRATROPIUM 0.5 MG NEB (SCH) NEB ×3 (08:58→20:16)
[2017-11-01] MEDS: MULTIVITAMINS/MINERALS THERAPEUTIC TAB PO SCH (09:28)
[2017-11-01] MEDS: METOPROLOL TARTRATE 25 MG TAB PO SCH ×2 (09:29→21:42)
[2017-11-01] MEDS: ASPIRIN 81 MG CHEW TAB PO SCH (09:29)
[2017-11-01] MEDS: DOCUSATE SODIUM 100 MG CAP PO SCH ×2 (09:29→21:42)
[2017-11-01] MEDS: POLYETHYLENE GLYCOL 17 GM PKG PO SCH (09:30)
[2017-11-01] MEDS: CLOPIDOGREL 75 MG TAB PO SCH (09:30)
[2017-11-01] MEDS: MAGNESIUM HYDROXIDE SUSP 30 ML CUP PO SCH ×2 (09:30→10:28)
[2017-11-01] MEDS: INSULIN ASPART SUPPLEMENTAL SCALE SQ SCH ×4 (09:31→21:00)
[2017-11-01] MEDS: SODIUM CHLORIDE 0.9% FLUSH 10 ML FLUSH IV FLUSH SCH ×2 (09:35→21:00)
[2017-11-01] MEDS ORDERED: oxyCODONE/ACETAMINOPHEN 5 MG/325 MG TAB PO ONE (10:00)
--- NOTE | 2017-11-01 13:46 | PD.CAR.PN ---
CVT Progress Note Subjective/Hospital Course: 57/ male presented to hospital 09/12/17 with STEMI, underwent emergent PCI to RCA with a bare metal stent by Dr Pastrana. He also had left main stenosis with small and diffusely diseased distal vessels. He was followed up by Dr Peralta on 10/08/17 for surgical management of his left sided cardiac pathology/ EF 55%. He was electively admitted today for surgery PMH : hep C, HTN, CAD PCI / stent RCA, surgery: 10/30+ 1. Off-pump Coronary Artery Bypass Grafting x 2 with Left Internal Mammary Artery (RILEY) to the Left Anterior Descending (LAD), reverse saphenous vein graft to the Ramus Marginalis (RM) 2. Left Leg Endoscopic Vein [place] 3. Intraoperative Vein Mapping extubated after surgery 2700cc crystalloid, 750cc cell saver, 200cc EBL 10/31 doing well , up in chair on nasal cannula gentle diuresis , start BB / transfer to stepdown 11/01 chest tube removed without diffulty pain meds adjusted remains in NSR creatinine 1.37 on ASA, statin , plavix BB Objective: GENERAL: A&O x 3 / prevena dressing to chest , incision to left leg SKIN: Warm and dry. HEAD: Normocephalic. EYES: No scleral icterus. No injection or drainage. NECK: Supple, trachea midline. No JVD or lymphadenopathy. CARDIOVASCULAR: Regular rate and rhythm without murmurs, gallops, or rubs. RESPIRATORY: Breath sounds equal bilaterally. No accessory muscle use. diminished in bases GASTROINTESTINAL: Abdomen soft, non-tender, nondistended. MUSCULOSKELETAL: No cyanosis, or edema. BACK: Nontender without obvious deformity. No CVA tenderness. Vital Signs Date Time Temp Pulse Resp B/P (MAP) Pulse Ox O2 Delivery O2 Flow Rate FiO2 11/01/17 12:00 106 11/01/17 11:00 98.0 95 16 120/72 (88) 94 11/01/17 11:00 102 11/01/17 11:00 94 Nasal Cannula 4.00 11/01/17 10:00 94 11/01/17 09:00 109 11/01/17 08:59 94 Nasal Cannula 4.00 11/01/17 08:00 98.9 99 18 115/75 (88) 94 11/01/17 08:00 94 Nasal Cannula 4.00 11/01/17 07:00 95 11/01/17 07:00 16 11/01/17 06:00 98 11/01/17 05:00 96 11/01/17 04:00 102 11/01/17 03:00 99.2 99 18 116/67 (83) 93 11/01/17 03:00 93 Nasal Cannula 4.00 11/01/17 03:00 99 11/01/17 02:00 100 11/01/17 01:00 102 11/01/17 00:00 106 10/31/17 23:00 108 10/31/17 23:00 98.8 101 20 112/73 (86) 92 10/31/17 23:00 94 Nasal Cannula 2.00 10/31/17 22:00 106 10/31/17 21:00 96 10/31/17 20:56 93 Nasal Cannula 4.00 10/31/17 20:00 94 10/31/17 19:00 98 10/31/17 19:00 99 Nasal Cannula 2.00 10/31/17 19:00 98.8 98 20 116/65 (82) 94 10/31/17 15:30 96 10/31/17 15:30 95 Nasal Cannula 4.00 10/31/17 15:30 97.9 90 20 103/61 (75) 95 10/31/17 15:30 90 Labs: Laboratory Tests Test 11/01/17 04:30 White Blood Count 15.7 TH/MM3 (4.0-11.0) Red Blood Count 4.17 MIL/MM3 (4.50-5.90) Hemoglobin 11.7 GM/DL (13.0-17.0) Hematocrit 35.3 % (39.0-51.0) Mean Corpuscular Volume 84.6 FL (80.0-100.0) Mean Corpuscular Hemoglobin 28.1 PG (27.0-34.0) Mean Corpuscular Hemoglobin Concent 33.2 % (32.0-36.0) Red Cell Distribution Width 17.8 % (11.6-17.2) Platelet Count 129 TH/MM3 (150-450) Mean Platelet Volume 8.8 FL (7.0-11.0) Neutrophils (%) (Auto) 80.4 % (16.0-70.0) Lymphocytes (%) (Auto) 8.8 % (9.0-44.0) Monocytes (%) (Auto) 10.4 % (0.0-8.0) Eosinophils (%) (Auto) 0.1 % (0.0-4.0) Basophils (%) (Auto) 0.3 % (0.0-2.0) Neutrophils # (Auto) 12.6 TH/MM3 (1.8-7.7) Lymphocytes # (Auto) 1.4 TH/MM3 (1.0-4.8) Monocytes # (Auto) 1.6 TH/MM3 (0-0.9) Eosinophils # (Auto) 0.0 TH/MM3 (0-0.4) Basophils # (Auto) 0.0 TH/MM3 (0-0.2) CBC Comment DIFF FINAL Differential Comment Blood Urea Nitrogen 27 MG/DL (7-18) Creatinine 1.37 MG/DL (0.60-1.30) Random Glucose 123 MG/DL (74-106) Calcium Level 8.9 MG/DL (8.5-10.1) Magnesium Level 2.4 MG/DL (1.5-2.5) Sodium Level 136 MEQ/L (136-145) Potassium Level 4.5 MEQ/L (3.5-5.1) Chloride Level 102 MEQ/L (98-107) Carbon Dioxide Level 24.6 MEQ/L (21.0-32.0) Anion Gap 9 MEQ/L (5-15) Estimat Glomerular Filtration Rate 53 ML/MIN (>89) Result Diagram: 11/01/17 0430 11/01/17 0430 Telemetry: NSR (1) CAD (coronary artery disease) (2) S/P CABG x 2 Plan: ASA, statin , BB , plavix OOB, ambulate CM to eval for HHC chest tubes dc without difficulty (3) Tobacco abuse Plan: smoking cessation (4) HTN (hypertension) Plan: stable (5) Left main coronary artery disease Virginia Alford Nov 01, 2017 13:46
[2017-11-01] MEDS ORDERED: OXYC1TAB63 PO (13:54)
[2017-11-01] MEDS ORDERED: DOCU1CAP39 PO (13:54)
[2017-11-01] MEDS ORDERED: THERM PO (13:54)
[2017-11-01] MEDS ORDERED: PLAV75TA29 PO (13:54)
[2017-11-01] MEDS ORDERED: METO25TA3 PO (13:54)
[2017-11-01] MEDS ORDERED: METOPROLOL TARTRATE 25 MG TAB PO ONE (14:00)
[2017-11-01] MEDS ORDERED: oxyCODONE/ACETAMINOPHEN 7.5 MG/325 MG TAB PO PRN (14:00)
[2017-11-01] MEDS: ATORVASTATIN 10 MG TAB PO SCH (21:42)
[2017-11-01] MEDS: SENNOSIDES 8.6 MG TAB PO SCH (21:42)
[2017-11-02] VITALS (26 sets, daily range): BP systolic 114–130; BP diastolic 58–76; PULSE 88–114; RESP 16–20; TEMP 98.3–98.9; O2SAT 91–95
[2017-11-02] MEDS: PANTOPRAZOLE SOD 40 MG DELAYED RELEASE TAB PO SCH (06:33)
[2017-11-02] MEDS: INSULIN ASPART SUPPLEMENTAL SCALE SQ SCH ×4 (08:00→21:00)
[2017-11-02] MEDS: oxyCODONE/ACETAMINOPHEN 5 MG/325 MG TAB PO PRN ×3 (08:10→21:23)
[2017-11-02] MEDS: RESP: ALBUTEROL 2.5 MG/IPRATROPIUM 0.5 MG NEB (SCH) NEB (08:27)
[2017-11-02] MEDS: SODIUM CHLORIDE 0.9% FLUSH 10 ML FLUSH IV FLUSH SCH ×2 (09:00→21:24)
[2017-11-02] MEDS: POLYETHYLENE GLYCOL 17 GM PKG PO SCH (09:02)
[2017-11-02] MEDS: DOCUSATE SODIUM 100 MG CAP PO SCH ×2 (09:03→21:19)
[2017-11-02] MEDS: CLOPIDOGREL 75 MG TAB PO SCH (09:03)
[2017-11-02] MEDS: METOPROLOL TARTRATE 25 MG TAB PO SCH ×2 (09:03→21:19)
[2017-11-02] MEDS: MULTIVITAMINS/MINERALS THERAPEUTIC TAB PO SCH (09:03)
[2017-11-02] MEDS: ASPIRIN 81 MG CHEW TAB PO SCH (09:03)
--- NOTE | 2017-11-02 09:58 | PD.CAR.PN ---
CVT Progress Note Subjective/Hospital Course: 57/ male presented to hospital 09/12/17 with STEMI, underwent emergent PCI to RCA with a bare metal stent by Dr Pastrana. He also had left main stenosis with small and diffusely diseased distal vessels. He was followed up by Dr Peralta on 10/08/17 for surgical management of his left sided cardiac pathology/ EF 55%. He was electively admitted today for surgery PMH : hep C, HTN, CAD PCI / stent RCA, surgery: 10/30+ 1. Off-pump Coronary Artery Bypass Grafting x 2 with Left Internal Mammary Artery (RILEY) to the Left Anterior Descending (LAD), reverse saphenous vein graft to the Ramus Marginalis (RM) 2. Left Leg Endoscopic Vein [place] 3. Intraoperative Vein Mapping extubated after surgery 2700cc crystalloid, 750cc cell saver, 200cc EBL 10/31 doing well , up in chair on nasal cannula gentle diuresis , start BB / transfer to stepdown 11/01 chest tube removed without diffulty pain meds adjusted remains in NSR creatinine 1.37 on ASA, statin , plavix BB 11/02 Weaning oxygen as tolerated Discharge planning Objective: Vital Signs Date Time Temp Pulse Resp B/P (MAP) Pulse Ox O2 Delivery O2 Flow Rate FiO2 11/02/17 09:24 18 11/02/17 08:27 95 Nasal Cannula 5.00 11/02/17 07:00 98 11/02/17 07:00 98.4 103 20 122/64 (83) 92 11/02/17 06:00 94 11/02/17 05:00 94 11/02/17 04:00 92 11/02/17 03:00 94 Nasal Cannula 5.00 11/02/17 03:00 95 11/02/17 03:00 98.3 95 16 114/64 (81) 94 11/02/17 02:00 100 11/02/17 01:00 100 11/02/17 00:00 98 11/01/17 23:00 98.8 100 18 125/65 (85) 93 11/01/17 23:00 100 11/01/17 23:00 93 Nasal Cannula 5.00 11/01/17 22:00 106 11/01/17 21:00 110 11/01/17 21:00 93 Nasal Cannula 5.00 11/01/17 20:47 92 Nasal Cannula 5.00 11/01/17 20:17 92 Nasal Cannula 4.00 11/01/17 20:00 110 11/01/17 19:00 98.5 111 18 137/76 (96) 92 11/01/17 19:00 92 Nasal Cannula 4.00 11/01/17 19:00 111 11/01/17 18:00 110 11/01/17 17:00 107 11/01/17 16:00 99 11/01/17 15:00 98.3 100 16 129/71 (90) 94 11/01/17 15:00 94 Nasal Cannula 4.00 11/01/17 15:00 104 11/01/17 14:00 107 11/01/17 13:00 95 11/01/17 12:00 106 11/01/17 11:00 98.0 95 16 120/72 (88) 94 11/01/17 11:00 102 11/01/17 11:00 94 Nasal Cannula 4.00 11/01/17 10:00 94 Result Diagram: 11/01/17 0430 11/01/17 0430 (1) CAD (coronary artery disease) (2) S/P CABG x 2 Plan: ASA, statin , BB , plavix OOB, ambulate CM to eval for HHC chest tubes dc without difficulty (3) Tobacco abuse Plan: smoking cessation (4) HTN (hypertension) Plan: stable (5) Left main coronary artery disease Raheel Peralta MD Nov 02, 2017 09:58
[2017-11-02] MEDS: SENNOSIDES 8.6 MG TAB PO SCH (21:19)
[2017-11-02] MEDS: ATORVASTATIN 10 MG TAB PO SCH (21:20)
[2017-11-03] VITALS (13 sets, daily range): BP systolic 125–136; BP diastolic 81–83; PULSE 81–105; RESP 16–18; TEMP 97.9–99; O2SAT 91–96
[2017-11-03] MEDS: oxyCODONE/ACETAMINOPHEN 5 MG/325 MG TAB PO PRN (06:39)
[2017-11-03] MEDS: PANTOPRAZOLE SOD 40 MG DELAYED RELEASE TAB PO SCH (06:39)
[2017-11-03] MEDS: INSULIN ASPART SUPPLEMENTAL SCALE SQ SCH ×2 (08:00→12:00)
[2017-11-03] MEDS: DOCUSATE SODIUM 100 MG CAP PO SCH (08:45)
[2017-11-03] MEDS: POLYETHYLENE GLYCOL 17 GM PKG PO SCH (08:45)
[2017-11-03] MEDS: MULTIVITAMINS/MINERALS THERAPEUTIC TAB PO SCH (08:45)
[2017-11-03] MEDS: MAGNESIUM HYDROXIDE SUSP 30 ML CUP PO SCH (08:45)
[2017-11-03] MEDS: ASPIRIN 81 MG CHEW TAB PO SCH (08:46)
[2017-11-03] MEDS: METOPROLOL TARTRATE 25 MG TAB PO SCH (08:46)
[2017-11-03] MEDS: CLOPIDOGREL 75 MG TAB PO SCH (08:47)
[2017-11-03] MEDS: SODIUM CHLORIDE 0.9% FLUSH 10 ML FLUSH IV FLUSH SCH (08:50)
--- NOTE | 2017-11-03 09:25 | HHI.DS ---
Discharge Summary Admission Date Oct 30, 2017 at 05:39 Discharge Date: Nov 03, 2017 Admitting Diagnosis (1) CAD (coronary artery disease) Diagnosis: Principal ICD Codes: I25.10 - Atherosclerotic heart disease of [place] coronary artery without angina pectoris (2) Left main coronary artery disease Diagnosis: Principal ICD Codes: I25.10 - Atherosclerotic heart disease of [place] coronary artery without angina pectoris CBC/BMP: 11/01/17 0430 11/01/17 0430 Significant Findings Laboratory Tests Test 11/01/17 04:30 White Blood Count 15.7 TH/MM3 (4.0-11.0) Red Blood Count 4.17 MIL/MM3 (4.50-5.90) Hemoglobin 11.7 GM/DL (13.0-17.0) Hematocrit 35.3 % (39.0-51.0) Red Cell Distribution Width 17.8 % (11.6-17.2) Platelet Count 129 TH/MM3 (150-450) Neutrophils (%) (Auto) 80.4 % (16.0-70.0) Lymphocytes (%) (Auto) 8.8 % (9.0-44.0) Monocytes (%) (Auto) 10.4 % (0.0-8.0) Neutrophils # (Auto) 12.6 TH/MM3 (1.8-7.7) Monocytes # (Auto) 1.6 TH/MM3 (0-0.9) Blood Urea Nitrogen 27 MG/DL (7-18) Creatinine 1.37 MG/DL (0.60-1.30) Random Glucose 123 MG/DL (74-106) Estimat Glomerular Filtration Rate 53 ML/MIN (>89) Hospital Course Subjective/Hospital Course: 57/ male presented to hospital 09/12/17 with STEMI, underwent emergent PCI to RCA with a bare metal stent by Dr Pastrana. He also had left main stenosis with small and diffusely diseased distal vessels. He was followed up by Dr Peralta on 10/08/17 for surgical management of his left sided cardiac pathology/ EF 55%. He was electively admitted today for surgery PMH : hep C, HTN, CAD PCI / stent RCA, surgery: 10/30+ 1. Off-pump Coronary Artery Bypass Grafting x 2 with Left Internal Mammary Artery (RILEY) to the Left Anterior Descending (LAD), reverse saphenous vein graft to the Ramus Marginalis (RM) 2. Left Leg Endoscopic Vein [place] 3. Intraoperative Vein Mapping extubated after surgery 2700cc crystalloid, 750cc cell saver, 200cc EBL 10/31 doing well , up in chair on nasal cannula gentle diuresis , start BB / transfer to stepdown 11/01 chest tube removed without diffulty pain meds adjusted remains in NSR creatinine 1.37 on ASA, statin , plavix BB 11/02 Weaning oxygen as tolerated Discharge planning 11/03 On RA Discharge home Pt Condition on Discharge: Good Discharge Disposition: Disch w/ Home Health Serv Discharge Instructions DIET: Follow Instructions for: Heart Healthy Diet Activities you can perform: Full Weight Bearing, Shower Only-No Bath Activities to avoid: Strenuous Activity, Driving Additional Activity Instructio: no lifting > 8 lbs or gallon of milk Follow up Referrals: Cardiology, Interventional - 4 Weeks with Yakov Duke DO PCP Follow-up - 2 Weeks with René Johnson MD Surgical - 2 Weeks with Raheel Peralta MD New Medications: Clopidogrel (Plavix) 75 Mg Tab 75 MG PO DAILY for Blood Clot Prevention, #30 TAB 2 Refills Docusate Sodium (Dok) 100 Mg Cap 100 MG PO BID for Constipation, #60 CAP 0 Refills Metoprolol Tartrate (Metoprolol Tartrate) 25 Mg Tab 25 MG PO BID for Blood Pressure Management, #60 TAB 2 Refills Multiple Vitamins W/ Minerals (Thera M Plus) 1 Tab 1 TAB PO DAILY for multi vitamin, #30 TAB 2 Refills Oxycodone HCl/Acetaminophen (Oxycodone-Acetaminophen 5-325) 5 Mg-325 Mg Tablet 1 TAB PO Q4HR PRN for PAIN SCALE 1 TO 5, #40 TAB 0 Refills Continued Medications: Aspirin (Tgt Aspirin) 81 Mg Chw 81 MG PO DAILY for heart disease, #30 EA 0 Refills Atorvastatin (Lipitor) 10 Mg Tab 10 MG PO HS for heart disease, #30 TAB 0 Refills Discontinued Medications: Lisinopril (Lisinopril) 5 Mg Tab 5 MG PO DAILY for heart disease, #30 TAB 0 Refills Metoprolol Tartrate (Metoprolol Tartrate) 25 Mg Tab 12.5 MG PO BID for heart disease, #60 TAB 0 Refills Ticagrelor (Brilinta) 90 Mg Tab 90 MG PO BID for heart disease, #60 TAB 0 Refills Raheel Peralta MD Nov 03, 2017 09:25
== END 2017-11-03 12:45 | disposition home health service (06) | DRG 236 ==
LOC: HSDI 10-30 05:39 → HCVI 10-30 12:04 → HCPC 10-31 09:22
PROVIDERS: ADMIT Thoracic Surgery (Cardiothoracic Vascular Surgery); ATTEND Thoracic Surgery (Cardiothoracic Vascular Surgery)
PROC: 06BQ4ZZ Excision of Left Saphenous Vein, Percutaneous Endoscopic Approach (ICD-10-PCS; 2017-10-30)
PROC: 02100Z9 Bypass Coronary Artery, One Artery from Left Internal Mammary, Open Approach (ICD-10-PCS; principal; 2017-10-30 07:22)
PROC: 021009W Bypass Coronary Artery, One Artery from Aorta with Autologous Venous Tissue, Open Approach (ICD-10-PCS; 2017-10-30 07:22)
DX: I25.10 Atherosclerotic heart disease of native coronary artery without angina pectoris (principal); I10 Essential (primary) hypertension; I25.2 Old myocardial infarction; Z95.5 Presence of coronary angioplasty implant and graft; Z72.0 Tobacco use
CPT/HCPCS: 71045; 76937; 80048; 82948; 83735; 85014; 85025; 85027; 86850; 86900; 86901; 86920; 93005; 94150; 94640; 94664; 94667; 94668; C1768; C9248; J0131; J0330; J0690; J1644; J1815; J1817; J1885; J1940; J2250; J2270; J2370; J2405; J2720; J3010; J3370; J3475; J3480; J7030; J7050; J7120